=== PATIENT | male | born 1950 | race Caucasian/White ===

== ENCOUNTER 2019-07-10 23:04 | Inpatient (IN) | payer MEDICARE ==
--- NOTE | 2019-07-10 23:30 | ED ---
General Adult HPI - General Chief complaint: Recheck/Abnormal Lab/Rx Stated complaint: Low Hgb Time Seen by Provider: 07/10/19 23:08 Source: patient, EMS, old records reviewed Mode of arrival: EMS Limitations: no limitations - History of Present Illness Initial comments: This patient is a 68-year-old man with history of non-Hodgkin's lymphoma, currently undergoing chemotherapy who presents as a transfer from [facility], where he had gone to be seen earlier in the day. The patient was complaining that he was feeling fatigued and had no exercise tolerance. The patient had history of recent anemia and feels that he may be anemic again. The patient had labs at the outside facility, where he is found to be pancytopenic. White count 1.2, hemoglobin 6.7, platelet count 11. They did start transfusion with 1 unit PRBCs and transferred patient here. The patient states she was diagnosed four and a half years ago, and had been receiving treatment through the [facility], Dr. Garduno. Patient believes that his last chemotherapy was on June 28. -: days(s) - Related Data Home Medications Medication Instructions Recorded Confirmed Diphenoxylate HCl/Atropine 1 - 2 tab PO QID PRN 07/11/19 07/11/19 [Lomotil 2.5-0.025 mg Tablet] LORazepam [Ativan] 0.5 mg PO DAILY PRN 07/11/19 07/11/19 Prochlorperazine [Compazine] 10 mg PO Q6H PRN 07/11/19 07/11/19 Allergies Allergy/AdvReac Type Severity Reaction Status Date / Time No Known Allergies Allergy Verified 07/11/19 07:52 Review of Systems ROS Statement: Those systems with pertinent positive or pertinent negative responses have been documented in the HPI. ROS Other: All systems not noted in ROS Statement are negative. Constitutional: Reports: weakness. Denies: fever, chills Respiratory: Denies: cough, dyspnea, hemoptysis Cardiovascular: Reports: dyspnea on exertion, edema. Denies: chest pain, palpitations, syncope Gastrointestinal: Denies: abdominal pain, vomiting, diarrhea Genitourinary: Denies: dysuria, hematuria Musculoskeletal: Reports: back pain (Chronic) Skin: Denies: rash Neurological: Denies: headache, weakness, numbness, paresthesias Past Medical History Additional Past Medical History / Comment(s): non hodgkins lymphoma History of Any Multi-Drug Resistant Organisms: None Reported Past Surgical History: Hernia Repair Additional Past Surgical History / Comment(s): 1986 hernia repair Past Psychological History: No Psychological Hx Reported Smoking Status: Never smoker Past Alcohol Use History: None Reported Past Drug Use History: None Reported General Exam Limitations: no limitations General appearance: alert, in no apparent distress, cachectic Head exam: Present: atraumatic, normocephalic Eye exam: Present: normal appearance, other (Conjunctival pallor). Absent: scleral icterus, conjunctival injection ENT exam: Present: mucous membranes dry, other (Coastal pallor) Neck exam: Present: normal inspection Respiratory exam: Present: decreased breath sounds (At the right base). Absent: respiratory distress, wheezes, rales, rhonchi, stridor Cardiovascular Exam: Present: regular rate, normal rhythm, systolic murmur. Absent: diastolic murmur, rubs, gallop GI/Abdominal exam: Present: soft. Absent: distended, tenderness, guarding, rebound, rigid, mass Extremities exam: Present: normal inspection, pedal edema. Absent: calf tenderness Neurological exam: Present: alert Course Vital Signs 07/10/19 07/10/19 07/10/19 23:06 23:21 23:36 Temperature 97.8 F 97.6 F 97.6 F Pulse Rate 86 85 84 Respiratory 18 18 18 Rate Blood Pressure 127/79 114/66 116/67 O2 Sat by Pulse 96 95 97 Oximetry 07/11/19 07/11/19 00:17 02:22 Temperature 97.8 F Pulse Rate 82 80 Respiratory 18 18 Rate Blood Pressure 116/68 120/68 O2 Sat by Pulse 97 97 Oximetry - Reevaluation(s) Reevaluation #1: 07/11/19 01:[address] Flores, covering for the oncology service. Will see the patient morning. Treatment recommendations are incorporated. Medical Decision Making - Lab Data Result diagrams: 07/16/19 08:48 07/16/19 08:48 Disposition Clinical Impression: Pancytopenia Disposition: ADMITTED IP TO THIS [facility] Condition: Poor Is patient prescribed a controlled substance at d/c from ED?: No
--- NOTE | 2019-07-11 00:47 | XR ---
EXAMINATION TYPE: XR chest 1V portable DATE OF EXAM: 07/11/2019 COMPARISON: NONE HISTORY: Weakness TECHNIQUE: Single frontal view of the chest is obtained. FINDINGS: Heart is normal. There is blunting right costophrenic angle. There is some probably some i nfiltrate right lower lobe. Left lung is clear. There is no heart failure. There is right central leif ous catheter with tip in the superior vena cava. There are chest leads. IMPRESSION: Right pleural effusion and right lower lobe infiltrate. No heart failure seen.
[2019-07-11] MEDS ORDERED: PNEUMONIA PROTOCOL UTILIZED 1 EACH MISC PO PRN (01:17)
[2019-07-11] MEDS ORDERED: CEFEPIME 2 GM in SODIUM CHLORIDE 0.9% 100 ML IVPB ONE (01:30)
[2019-07-11] MEDS: SODIUM CHLORIDE 0.9% 1,000 ML IV SCH ×2 (01:49→17:52)
[2019-07-11] MEDS: CEFEPIME 2 GM in SODIUM CHLORIDE 0.9% 100 ML IVPB SCH ×2 (02:18→17:44)
[2019-07-11] MEDS: HYDROmorphone 1 MG/ML 1 ML SYRINGE IVP PRN (08:29)
[2019-07-11 09:02] LABS: Albumin 2.1 g/dL (3.5-5.0); Calcium 7.1 mg/dL (8.4-10.2); Potassium 3.6 mmol/L (3.5-5.1); Total Protein 4.4 g/dL (6.3-8.2)
[2019-07-11 09:04] LABS: Anisocytosis Slight; HCT 24.5 % (39.0-53.0); HGB 8.3 gm/dL (13.0-17.5); Hypochromasia Slight; MCH 30.1 pg (25.0-35.0); MCHC 33.8 g/dL (31.0-37.0); MCV 89.1 fL (80.0-100.0); Mean Platelet Volume 11.2; Poikilocytosis Moderate; RBC 2.75 m/uL (4.30-5.90); RDW 16.1 % (11.5-15.5)
[2019-07-11 09:27] LABS: Platelet Count 13 k/uL (150-450); WBC 0.9 k/uL (3.8-10.6)
[2019-07-11 11:27] VITALS: BMI 22.9
--- NOTE | 2019-07-11 12:44 | P.HPIM ---
History of Present Illness Patient is a pleasant 68-year-old male with known history of non-Hodgkin's lymphoma receiving chemotherapy in the of this month comes in here because of severe fatigue exercise intolerance found to be anemic patient is pancytope sae. Patient the was coughing significantly low sputum production did doesn't have any fever chest x-ray did show new pleural effusion and infiltrate because of which patient is being admitted for pneumonia and pancytopenia patient did receive 1 unit of PRBC transfusion at outside facility. Hemoglobin was 6.7 at that facility. Her present hemoglobin is 8.3 platelet count of 13 and white blood cell count of 0.9, I do not have absolute neutrophil count at this time. Patient's alkaline phosphatase is bit elevated to 4H2 as well. Review of Systems REVIEW OF SYSTEMS: CONSTITUTIONAL: No fever, no malaise, no fatigue. HEENT: No recent visual problems or hearing problems. Denied any sore throat. CARDIOVASCULAR: No chest pain, orthopnea, PND, no palpitations, no syncope. PULMONARY: no hemoptysis. GASTROINTESTINAL: No diarrhea, no nausea, no vomiting, no abdominal pain. NEUROLOGICAL: No headaches, no weakness, no numbness. HEMATOLOGICAL: Denies any bleeding or petechiae. GENITOURINARY: Denies any burning micturition, frequency, or urgency. MUSCULOSKELETAL/RHEUMATOLOGICAL: Denies any joint pain, swelling, or any muscle pain. ENDOCRINE: Denies any polyuria or polydipsia. The rest of the 14-point review of systems is negative. Past Medical History Additional Past Medical History / Comment(s): non hodgkins lymphoma History of Any Multi-Drug Resistant Organisms: None Reported Past Surgical History: Hernia Repair Additional Past Surgical History / Comment(s): 1986 hernia repair Past Psychological History: No Psychological Hx Reported Smoking Status: Never smoker Past Alcohol Use History: None Reported Past Drug Use History: None Reported Medications and Allergies Home Medications Medication Instructions Recorded Confirmed Type Diphenoxylate HCl/Atropine 1 - 2 tab PO QID PRN 07/11/19 07/11/19 History [Lomotil 2.5-0.025 mg Tablet] LORazepam [Ativan] 0.5 mg PO DAILY PRN 07/11/19 07/11/19 History Prochlorperazine [Compazine] 10 mg PO Q6H PRN 07/11/19 07/11/19 History Allergies Allergy/AdvReac Type Severity Reaction Status Date / Time No Known Allergies Allergy Verified 07/11/19 07:52 Physical Exam Vitals: Vital Signs Temp Pulse Pulse Resp BP BP Pulse Ox 07/11/19 08:00 89 18 07/11/19 07:24 97.7 F 89 18 108/70 97 07/11/19 02:48 97.5 F L 87 18 128/69 95 07/11/19 02:22 80 18 120/68 97 07/11/19 00:17 97.8 F 82 18 116/68 97 07/10/19 23:36 97.6 F 84 18 116/67 97 07/10/19 23:21 97.6 F 85 18 114/66 95 07/10/19 23:06 97.8 F 86 18 127/79 96 Intake and Output 07/10/19 07/11/19 07/11/19 22:59 06:59 14:59 Intake Total 500 Balance 500 Intake: Intake, IV Titration 500 Amount Cefepime 2 gm In Sodium 100 Chloride 0.9% 100 ml @ 200 mls/hr IVPB Q8H [facility] Rx#:[id number] Sodium Chloride 0.9% 1, 400 000 ml @ 100 mls/hr IV . Q10H [facility] Rx#:[id number] Other: Voiding Method Toilet Urinal # Voids 1 Weight 65.317 kg 68.492 kg PHYSICAL EXAMINATION: GENERAL: The patient is alert and oriented x3, not in any acute distress. Well developed, well nourished. Patient appears fatigued and weak HEENT: Pupils are round and equally reacting to light. EOMI. No scleral icterus. Does have conjunctival pallor. Normocephalic, atraumatic. No pharyngeal erythema. No thyromegaly. CARDIOVASCULAR: S1 and S2 present. No murmurs, rubs, or gallops. PULMONARY: Chest is clear to auscultation, no wheezing or crackles. ABDOMEN: Soft, nontender, nondistended, normoactive bowel sounds. No palpable organomegaly. MUSCULOSKELETAL: No joint swelling or deformity. EXTREMITIES: No cyanosis, clubbing, or pedal edema. NEUROLOGICAL: Gross neurological examination did not reveal any focal deficits. SKIN: No rashes. Results CBC & Chem 7: 07/11/19 08:06 07/11/19 08:06 Labs: Abnormal Lab Results - Last 24 Hours (Table) 07/11/19 07/11/19 Range/Units 08:06 08:06 WBC 0.9 L* (3.8-10.6) k/uL RBC 2.75 L (4.30-5.90) m/uL Hgb 8.3 L (13.0-17.5) gm/dL Hct 24.5 L (39.0-53.0) % RDW 16.1 H (11.5-15.5) % Plt Count 13 L* (150-450) k/uL BUN 25 H (9-20) mg/dL Calcium 7.1 L (8.4-10.2) mg/dL AST 16 L (17-59) U/L ALT 18 L (21-72) U/L Alkaline Phosphatase 482 H (38-126) U/L Total Protein 4.4 L (6.3-8.2) g/dL Albumin 2.1 L (3.5-5.0) g/dL Thrombosis Risk Factor Assmnt - Choose All That Apply Any of the Below Risk Factors Present?: No Other Risk Factors: Yes Each Risk Factor Represents 2 Points: Age 61-74 years, Malignancy Other congenital or acquired thrombophilia - If yes, enter type in comment: No Thrombosis Risk Factor Assessment Total Risk Factor Score: 4 Thrombosis Risk Factor Assessment Level: Moderate Risk Assessment and Plan Plan: -Right lower lobe pneumonia patient is neutropenic patient was started on CCefepime, obtain sputum cultures and blood cultures. IV fluids will be continu ed -Pancytopenia secondary to chemotherapy patient will receive GM-CSF injection For non-Hodgkin's lymphoma with recent chemotherapy as mentioned above -Fatigue. Secondary to anemia received monitor blood transfusion patient is feeling much better now -Mild elevation of alkaline phosphatase probably secondary to chemotherapy and cholestasis we'll repeat liver enzymes tomorrow -GI prophylaxis with Pepcid cannot use heparin for DVT prophylaxis or any other anticoagulants because of thrombocytopenia
[2019-07-11] MEDS ORDERED: traMADol 50 MG TAB PO SCH (13:00)
[2019-07-11] MEDS: FILGRASTIM-SNDZ 480 MCG/0.8 ML SYRINGE SQ SCH (13:33)
[2019-07-11] MEDS: traMADol 50 MG TAB PO PRN (20:19)
--- NOTE | 2019-07-11 22:24 | P.CONS ---
History of Present Illness - Reason for Consult Consult date: 07/11/19 diffuse large B-cell lymphoma - Chief Complaint neutropenic sepsis - History of Present Illness This is a very pleasant 68-year-old gentleman with a long-standing history of non-Hodgkin lymphoma, marginal zone lymphoma initially diagnosed in 2011 ongoing treatment multiple times in the past including being on the clinical trial under care of Dr. Georgi Shaffer at [facility]. The patient has had R CHOP, rituximab maintenance in the past subsequently had relapse recurrence with multiple other lines of treatment. More recently the patient had progression of disease and underwent a bone marrow biopsy in May 2019 which showed transformation of lymphoma to diffuse large B-cell lymphoma CD30 positive BX positive and CD20 negative. The patient has been started on immunotherapy likely I will I believe the BRENtuximab -based regimen however I do not have the records currently available. The patient has been referred from [facility] with significant anemia hemoglobin 6.7, platelet count of 11 currently undergoing one unit of PRBC. Patient is also neutropenic. overall feeling weak and fatigued and not doing that well,, short of breath, edema rest of the review of systems is negative. Review of Systems fatigue, shortness of breath, fever or shortness of breath chills Past Medical History Additional Past Medical History / Comment(s): non hodgkins lymphoma History of Any Multi-Drug Resistant Organisms: None Reported Past Surgical History: Hernia Repair Additional Past Surgical History / Comment(s): 1986 hernia repair Past Psychological History: No Psychological Hx Reported Smoking Status: Never smoker Past Alcohol Use History: None Reported Past Drug Use History: None Reported Medications and Allergies Home Medications Medication Instructions Recorded Confirmed Type Diphenoxylate HCl/Atropine 1 - 2 tab PO QID PRN 07/11/19 07/11/19 History [Lomotil 2.5-0.025 mg Tablet] LORazepam [Ativan] 0.5 mg PO DAILY PRN 07/11/19 07/11/19 History Prochlorperazine [Compazine] 10 mg PO Q6H PRN 07/11/19 07/11/19 History Allergies Allergy/AdvReac Type Severity Reaction Status Date / Time No Known Allergies Allergy Verified 07/11/19 07:52 Physical Exam Vitals: Vital Signs Temp Pulse Pulse Resp BP BP Pulse Ox 07/11/19 16:48 98 F 101 H 16 117/63 94 L 07/11/19 14:56 98.9 F 105 H 18 115/67 96 07/11/19 14:26 98.1 F 97 16 119/68 99 07/11/19 14:16 98.6 F 100 18 124/70 97 07/11/19 14:10 97.8 F 102 H 18 123/71 96 07/11/19 11:20 98.7 F 78 17 126/69 96 07/11/19 08:00 89 18 07/11/19 07:24 97.7 F 89 18 108/70 97 07/11/19 02:48 97.5 F L 87 18 128/69 95 07/11/19 02:22 80 18 120/68 97 07/11/19 00:17 97.8 F 82 18 116/68 97 07/10/19 23:36 97.6 F 84 18 116/67 97 07/10/19 23:21 97.6 F 85 18 114/66 95 07/10/19 23:06 97.8 F 86 18 127/79 96 Intake and Output 07/11/19 07/11/19 07/11/19 06:59 14:59 22:59 Intake Total 500 400 309 Balance 500 400 309 Intake: Intake, IV Titration 500 Amount Cefepime 2 gm In Sodium 100 Chloride 0.9% 100 ml @ 200 mls/hr IVPB Q8H [facility] Rx#:[id number] Sodium Chloride 0.9% 1, 400 000 ml @ 100 mls/hr IV . Q10H [facility] Rx#:[id number] Oral 400 Blood Product 0 309 Platelet Irr Pheresis 0 309 Acda1 Unit [id number] Other: Voiding Method Toilet Toilet Urinal Urinal # Voids 1 2 Weight 65.317 kg 68.492 kg The patient appeared well nourished and normally developed. Vital signs as documented. Head exam is unremarkable. No scleral icterus or corneal arcus noted. Neck is without jugular venous distension, thyromegaly, or carotid bruits. Carotid upstrokes are brisk bilaterally. Lungs are clear to auscultation and percussion. Cardiac exam reveals the PMI to be normally sized and situated. Rhythm is regular. First and second heart sounds normal. No murmurs, rubs or gallops. Abdominal exam reveals normal bowel sounds, no masses, no organomegaly and no aortic enlargement. Extremities are nonedematous and both femoral and pedal pulses are normal. Results CBC & Chem 7: 07/11/19 08:06 07/11/19 08:06 Labs: Abnormal Lab Results - Last 24 Hours (Table) 07/11/19 07/11/19 Range/Units 08:06 08:06 WBC 0.9 L* (3.8-10.6) k/uL RBC 2.75 L (4.30-5.90) m/uL Hgb 8.3 L (13.0-17.5) gm/dL Hct 24.5 L (39.0-53.0) % RDW 16.1 H (11.5-15.5) % Plt Count 13 L* (150-450) k/uL BUN 25 H (9-20) mg/dL Calcium 7.1 L (8.4-10.2) mg/dL AST 16 L (17-59) U/L ALT 18 L (21-72) U/L Alkaline Phosphatase 482 H (38-126) U/L Total Protein 4.4 L (6.3-8.2) g/dL Albumin 2.1 L (3.5-5.0) g/dL Chest x-ray: pending Abdominal x-ray: pending CT scan - abdomen: pending Assessment and Plan Assessment: Impression and plan: 1. 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 initial diagnoses of and marginal zone lymphoma in 2011. - Multiple lines of chemotherapy including R CHOP, rituximab maintenance etc. in the past, including a clinical trial under care of Dr. Georgi Shaffer at [facility]. - now with a relapsed, refractory disease the patient, an transformation to diffuse large B cell the patient has been started on immune therapy most likely with Brentuximab based chemotherapy however I do not have records at this time. - plan to continue treatment as outpatient. 2. Pneumonia,neutropenic sepsis: - continued on cefepime. - Start G-CSF - and monitor for signs and symptoms of infection/sepsis. 3. Chemotherapy-induced neutropenia, cytopenia:normocytic anemia: - Transfusions to keep hemoglobin above 7 and platelets above 10. - Current platelets 13,000, hemoglobin 8.3. - Check d-dimer, fibrinogen, haptoglobin, LDH, peripheral smear. - check B12 folate and iron levels. 4. Elevated liver enzymes. 5. Chronic kidney disease Thank you for allowing me to participate in the care of your patient. Radha Flores MD Sub[employer]ine Element Coordinator, [facility] Hematology Oncology [id number], [address] [place] [address] Office: [phone] Time with Patient: Greater than 30
[2019-07-11 22:59] LABS: Anisocytosis Slight; HCT 20.1 % (39.0-53.0); Hypochromasia Slight; MCH 29.8 pg (25.0-35.0); MCHC 33.9 g/dL (31.0-37.0); Mean Platelet Volume 8.5; Poikilocytosis Moderate; RBC 2.29 m/uL (4.30-5.90); RDW 16.5 % (11.5-15.5); Reticulocyte % 2.1 % (0.5-2.0)
[2019-07-11 23:01] LABS: WBC 1.2 k/uL (3.8-10.6)
[2019-07-11 23:03] LABS: HGB 6.8 gm/dL (13.0-17.5)
[2019-07-11 23:05] LABS: Platelet Count 16 k/uL (150-450)
[2019-07-11 23:16] LABS: D-Dimer 2.2 mg/L FEU (<0.60); INR 1.2 (<1.2); Partial Thromboplastin Time 34.9 sec (22.0-30.0); Prothrombin Time 12.5 sec (9.0-12.0)
[2019-07-11 23:34] LABS: Band Neutrophils % 23 %; Lymphocytes # (M) 0.05 k/uL (1.0-4.8); Monocytes # (M) 0.07 k/uL (0-1.0); Myelocytes # (M) 0.01 k/uL (0); Myelocytes % 1 %; Neutrophils % (M) 66 %; Nucleated Red Blood Cells 0 /100 WBC (0-0); Total Cells Counted 100
[2019-07-11 23:35] LABS: Anisocytosis (M) Present; Ovalocytes Present
[2019-07-12 00:53] LABS: Calcium 7.1 mg/dL (8.4-10.2); Potassium 3.5 mmol/L (3.5-5.1); Total Protein 4.1 g/dL (6.3-8.2)
[2019-07-12] MEDS: CEFEPIME 2 GM in SODIUM CHLORIDE 0.9% 100 ML IVPB SCH ×3 (01:59→18:19)
[2019-07-12] MEDS: SODIUM CHLORIDE 0.9% 1,000 ML IV SCH ×4 (01:59→18:20)
[2019-07-12 07:29] LABS: Anisocytosis Slight; HCT 21.7 % (39.0-53.0); Hypochromasia Slight; MCH 29.3 pg (25.0-35.0); MCHC 32.3 g/dL (31.0-37.0); MCV 90.7 fL (80.0-100.0); Mean Platelet Volume 8.1; Poikilocytosis Moderate; RDW 16.3 % (11.5-15.5)
[2019-07-12 07:42] LABS: WBC 1.2 k/uL (3.8-10.6)
[2019-07-12 07:43] LABS: Platelet Count 15 k/uL (150-450)
[2019-07-12 07:49] LABS: Albumin 1.9 g/dL (3.5-5.0); Calcium 6.8 mg/dL (8.4-10.2); Potassium 3.3 mmol/L (3.5-5.1); Total Protein 4.1 g/dL (6.3-8.2)
[2019-07-12] MEDS: traMADol 50 MG TAB PO PRN ×2 (08:32→19:08)
[2019-07-12] MEDS: FAMOTIDINE 20 MG TAB PO SCH (08:32)
[2019-07-12] MEDS: FILGRASTIM-SNDZ 480 MCG/0.8 ML SYRINGE SQ SCH (08:32)
[2019-07-12] MEDS ORDERED: POTASSIUM CHLORIDE ER 20 MEQ TAB.ER PO STA (13:55)
--- NOTE | 2019-07-12 14:27 | P.PN ---
Subjective Progress Note Date: 07/12/19 Principal diagnosis: Pancytopenia Mr. Sellers is a 68-year-old male with a past medical history of non-Hodgkin's lymphoma, marginal zone lymphoma initially diagnosed in 2012 ongoing treatment multiple times in the past admitted for severe fatigue. Patient was transferred from [facility] for pancytopenia. On 07/12/2019 - patient is lying in bed appears to be in no acute distress. His family is at bedside. Patient states that he has been feeling weak and fatigued for the past few weeks.He complains of mild difficulty in breathing and swelling of his bilateral lower extremities. He denies having any chest pain or palpitations. Mild cough. No abdominal pain nausea vomiting or diarrhea. No dysuria or hematuria. Patient received 1 unit of PRBCs and 5 units of platelets this morning. Patient denies having any bleeding from anywhere. Patient's labs and medications have been reviewed. Active Medications Famotidine (Pepcid) 20 mg PO DAILY [facility] Last Admin: 07/12/19 08:32 Dose: 20 mg Documented by: Filgrastim (Zarxio) 480 mcg SQ DAILY [facility] Last Admin: 07/12/19 08:32 Dose: 480 mcg Documented by: Hydromorphone HCl (Dilaudid) 1 mg IVP Q4HR PRN PRN Reason: Pain Last Admin: 07/11/19 08:29 Dose: 1 mg Documented by: Sodium Chloride (Saline 0.9%) 1,000 mls @ 100 mls/hr IV .Q10H [facility] Last Admin: 07/12/19 10:55 Dose: 100 mls/hr Documented by: Cefepime HCl 2 gm/ Sodium (Chloride) 100 mls @ 200 mls/hr IVPB Q8H [facility] Last Admin: 07/12/19 10:51 Dose: 200 mls/hr Documented by: Miscellaneous Information (Pneumonia Protocol Utilized) 1 each PO ONCE PRN PRN Reason: Per Protocol Tramadol HCl (Ultram) 50 mg PO QID PRN PRN Reason: Mild to Moderate Pain Last Admin: 07/12/19 08:32 Dose: 50 mg Documented by: Objective - Vital Signs Vital signs: Vital Signs Temp 97.3 F L 07/12/19 11:50 Pulse 93 07/12/19 11:50 Resp 16 07/12/19 11:50 BP 116/68 07/12/19 11:50 Pulse Ox 96 07/12/19 11:50 Intake & Output 07/11/19 07/12/19 07/12/19 18:59 06:59 18:59 Intake Total 709 310 Output Total 400 Balance 709 -90 Weight 68.492 kg Intake: Oral 400 Blood Product 309 310 Platelet Irr Pheresis 309 Acda1 Unit [id number] Rc Irr As1 Unit 310 [id number] Output: Urine 400 Other: Voiding Method Toilet Toilet Urinal Urinal # Voids 2 3 - Exam PHYSICAL EXAMINATION: GENERAL: Chronically ill appearing. No acute distress HEENT: Pupils round and equal and reactive to light. Mild pallor. CARDIOVASCULAR: S1 and S2 present. No murmurs, rubs, or gallops. PULMONARY: Chest is clear to auscultation, no wheezing or crackles. ABDOMEN: Soft, nontender, nondistended, normoactive bowel sounds. No palpable organomegaly. MUSCULOSKELETAL: No joint swelling or deformity. EXTREMITIES : bilateral pitting edema up to the knee NEUROLOGICAL: Gross neurological examination did not reveal any focal deficits. SKIN: frail - Labs CBC & Chem 7: 07/12/19 06:52 07/12/19 06:52 Labs: Abnormal Lab Results - Last 24 Hours (Table) 07/11/19 07/11/19 07/11/19 Range/Units 08:30 22:39 22:39 WBC 1.2 L* (3.8-10.6) k/uL RBC 2.29 L (4.30-5.90) m/uL Hgb 6.8 L* D (13.0-17.5) gm/dL Hct 20.1 L (39.0-53.0) % RDW 16.5 H (11.5-15.5) % Plt Count 16 L* (150-450) k/uL Neutrophils # (Manual) 1.00 L (1.3-7.7) k/uL Lymphocytes # (Manual) 0.05 L (1.0-4.8) k/uL Myelocytes # (Manual) 0.01 H (0) k/uL Retic Count 2.1 H (0.5-2.0) % Haptoglobin (31.2-198.0) mg/dL PT 12.5 H (9.0-12.0) sec INR 1.2 H (<1.2) APTT 34.9 H (22.0-30.0) sec D-Dimer 2.20 H (<0.60) mg/L FEU Potassium (3.5-5.1) mmol/L Chloride (98-107) mmol/L BUN (9-20) mg/dL Glucose (74-99) mg/dL Plasma Lactic Acid William (0.7-2.0) mmol/L Calcium (8.4-10.2) mg/dL AST (17-59) U/L ALT (21-72) U/L Alkaline Phosphatase (38-126) U/L Total Protein (6.3-8.2) g/dL Albumin (3.5-5.0) g/dL Crossmatch See Detail 07/11/19 07/11/19 07/11/19 Range/Units 22:39 22:39 22:39 WBC (3.8-10.6) k/uL RBC (4.30-5.90) m/uL Hgb (13.0-17.5) gm/dL Hct (39.0-53.0) % RDW (11.5-15.5) % Plt Count (150-450) k/uL Neutrophils # (Manual) (1.3-7.7) k/uL Lymphocytes # (Manual) (1.0-4.8) k/uL Myelocytes # (Manual) (0) k/uL Retic Count (0.5-2.0) % Haptoglobin 337.0 H (31.2-198.0) mg/dL PT (9.0-12.0) sec INR (<1.2) APTT (22.0-30.0) sec D-Dimer (<0.60) mg/L FEU Potassium (3.5-5.1) mmol/L Chloride 108 H (98-107) mmol/L BUN 23 H (9-20) mg/dL Glucose (74-99) mg/dL Plasma Lactic Acid William <0.5 L (0.7-2.0) mmol/L Calcium 7.1 L (8.4-10.2) mg/dL AST (17-59) U/L ALT 17 L (21-72) U/L Alkaline Phosphatase 454 H (38-126) U/L Total Protein 4.1 L (6.3-8.2) g/dL Albumin 2.0 L (3.5-5.0) g/dL Crossmatch 07/12/19 07/12/19 Range/Units 06:52 06:52 WBC 1.2 L* (3.8-10.6) k/uL RBC 2.40 L (4.30-5.90) m/uL Hgb 7.0 L (13.0-17.5) gm/dL Hct 21.7 L (39.0-53.0) % RDW 16.3 H (11.5-15.5) % Plt Count 15 L* (150-450) k/uL Neutrophils # (Manual) (1.3-7.7) k/uL Lymphocytes # (Manual) (1.0-4.8) k/uL Myelocytes # (Manual) (0) k/uL Retic Count (0.5-2.0) % Haptoglobin (31.2-198.0) mg/dL PT (9.0-12.0) sec INR (<1.2) APTT (22.0-30.0) sec D-Dimer (<0.60) mg/L FEU Potassium 3.3 L (3.5-5.1) mmol/L Chloride 109 H (98-107) mmol/L BUN 23 H (9-20) mg/dL Glucose 73 L (74-99) mg/dL Plasma Lactic Acid William (0.7-2.0) mmol/L Calcium 6.8 L (8.4-10.2) mg/dL AST 14 L (17-59) U/L ALT 18 L (21-72) U/L Alkaline Phosphatase 384 H (38-126) U/L Total Protein 4.1 L (6.3-8.2) g/dL Albumin 1.9 L (3.5-5.0) g/dL Crossmatch Microbiology - Last 24 Hours (Table) 07/11/19 16:30 Gram Stain - Preliminary Sputum Sputum Culture - Preliminary 07/11/19 01:55 Blood Culture - Preliminary Blood No Growth after 24 hours Assessment and Plan Assessment: ASSESSMENT Right lower lobe pneumonia Pancytopenia - due to chemotherapy Hypokalemia Non-Hodgkin's lymphoma Refractory marginal zone lymphoma Elevated LFTs Elevated alkaline phosphatase Chronic kidney disease Severe protein calorie malnutrition PLAN: Patient received 1 unit of PRBCs and 5 units of platelets and his hemoglobin is around 7 and platelet count around 15. No signs of active bleeding. Continue with Zosyn. Will follow sputum and blood cultures. Patient has been afebrile for the past to 24 hours.Replace percussion. As the patient's albumin is low, encouraged him to drink ensure at least 3 times a day. Further recommendations to follow depending on the progress of the patient. The treatment plan was discussed in detail with the patient's family members at bedside.
--- NOTE | 2019-07-12 18:22 | P.PN ---
Subjective Progress Note Date: 07/12/19 Objective - Vital Signs Vital signs: Vital Signs Temp 97.3 F L 07/12/19 11:50 Pulse 93 07/12/19 11:50 Resp 16 07/12/19 11:50 BP 116/68 07/12/19 11:50 Pulse Ox 96 07/12/19 11:50 Intake & Output 07/11/19 07/12/19 07/12/19 18:59 06:59 18:59 Intake Total 709 620 Output Total 400 Balance 709 220 Weight 68.492 kg Intake: Oral 400 Blood Product 309 620 Platelet Irr Pheresis 309 Acda1 Unit [id number] Rc Irr As1 Unit 310 [id number] Output: Urine 400 Other: Voiding Method Toilet Toilet Toilet Urinal Urinal Urinal # Voids 2 3 - Exam The patient appeared well nourished and normally developed. Vital signs as documented. Head exam is unremarkable. No scleral icterus or corneal arcus noted. Neck is without jugular venous distension, thyromegaly, or carotid bruits. Carotid upstrokes are brisk bilaterally. Lungs are clear to auscultation and percussion. Cardiac exam reveals the PMI to be normally sized and situated. Rhythm is regular. First and second heart sounds normal. No murmurs, rubs or gallops. Abdominal exam reveals normal bowel sounds, no masses, no organomegaly and no aortic enlargement. Extremities are nonedematous and both femoral and pedal pulses are normal. - Labs CBC & Chem 7: 07/12/19 06:52 07/12/19 06:52 Labs: Abnormal Lab Results - Last 24 Hours (Table) 07/11/19 07/11/19 07/11/19 Range/Units 08:30 22:39 22:39 WBC 1.2 L* (3.8-10.6) k/uL RBC 2.29 L (4.30-5.90) m/uL Hgb 6.8 L* D (13.0-17.5) gm/dL Hct 20.1 L (39.0-53.0) % RDW 16.5 H (11.5-15.5) % Plt Count 16 L* (150-450) k/uL Neutrophils # (Manual) 1.00 L (1.3-7.7) k/uL Lymphocytes # (Manual) 0.05 L (1.0-4.8) k/uL Myelocytes # (Manual) 0.01 H (0) k/uL Retic Count 2.1 H (0.5-2.0) % Haptoglobin (31.2-198.0) mg/dL PT 12.5 H (9.0-12.0) sec INR 1.2 H (<1.2) APTT 34.9 H (22.0-30.0) sec D-Dimer 2.20 H (<0.60) mg/L FEU Potassium (3.5-5.1) mmol/L Chloride (98-107) mmol/L BUN (9-20) mg/dL Glucose (74-99) mg/dL Plasma Lactic Acid William (0.7-2.0) mmol/L Calcium (8.4-10.2) mg/dL AST (17-59) U/L ALT (21-72) U/L Alkaline Phosphatase (38-126) U/L Total Protein (6.3-8.2) g/dL Albumin (3.5-5.0) g/dL Crossmatch See Detail 07/11/19 07/11/19 07/11/19 Range/Units 22:39 22:39 22:39 WBC (3.8-10.6) k/uL RBC (4.30-5.90) m/uL Hgb (13.0-17.5) gm/dL Hct (39.0-53.0) % RDW (11.5-15.5) % Plt Count (150-450) k/uL Neutrophils # (Manual) (1.3-7.7) k/uL Lymphocytes # (Manual) (1.0-4.8) k/uL Myelocytes # (Manual) (0) k/uL Retic Count (0.5-2.0) % Haptoglobin 337.0 H (31.2-198.0) mg/dL PT (9.0-12.0) sec INR (<1.2) APTT (22.0-30.0) sec D-Dimer (<0.60) mg/L FEU Potassium (3.5-5.1) mmol/L Chloride 108 H (98-107) mmol/L BUN 23 H (9-20) mg/dL Glucose (74-99) mg/dL Plasma Lactic Acid William <0.5 L (0.7-2.0) mmol/L Calcium 7.1 L (8.4-10.2) mg/dL AST (17-59) U/L ALT 17 L (21-72) U/L Alkaline Phosphatase 454 H (38-126) U/L Total Protein 4.1 L (6.3-8.2) g/dL Albumin 2.0 L (3.5-5.0) g/dL Crossmatch 07/12/19 07/12/19 Range/Units 06:52 06:52 WBC 1.2 L* (3.8-10.6) k/uL RBC 2.40 L (4.30-5.90) m/uL Hgb 7.0 L (13.0-17.5) gm/dL Hct 21.7 L (39.0-53.0) % RDW 16.3 H (11.5-15.5) % Plt Count 15 L* (150-450) k/uL Neutrophils # (Manual) (1.3-7.7) k/uL Lymphocytes # (Manual) (1.0-4.8) k/uL Myelocytes # (Manual) (0) k/uL Retic Count (0.5-2.0) % Haptoglobin (31.2-198.0) mg/dL PT (9.0-12.0) sec INR (<1.2) APTT (22.0-30.0) sec D-Dimer (<0.60) mg/L FEU Potassium 3.3 L (3.5-5.1) mmol/L Chloride 109 H (98-107) mmol/L BUN 23 H (9-20) mg/dL Glucose 73 L (74-99) mg/dL Plasma Lactic Acid William (0.7-2.0) mmol/L Calcium 6.8 L (8.4-10.2) mg/dL AST 14 L (17-59) U/L ALT 18 L (21-72) U/L Alkaline Phosphatase 384 H (38-126) U/L Total Protein 4.1 L (6.3-8.2) g/dL Albumin 1.9 L (3.5-5.0) g/dL Crossmatch Microbiology - Last 24 Hours (Table) 07/11/19 16:30 Gram Stain - Preliminary Sputum Sputum Culture - Preliminary 07/11/19 01:55 Blood Culture - Preliminary Blood No Growth after 24 hours - Imaging and Cardiology Chest x-ray: report reviewed Assessment and Plan Assessment: Impression and plan: 1. 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 initial diagnoses of and marginal zone lymphoma in 2011. - Multiple lines of chemotherapy including R CHOP, rituximab maintenance etc. in the past, including a clinical trial under care of Dr. Georgi Shaffer at [facility]. - now with a relapsed, refractory disease the patient, an transformation to diffuse large B cell the patient has been started on Polatuzumab vedotin with bendamustine and rituximab. - plan to continue treatment as outpatient. 2. Pneumonia,neutropenic sepsis: - continued on cefepime. - continue G-CSF - and monitor for signs and symptoms of infection/sepsis. 3. Chemotherapy-induced neutropenia, cytopenia:normocytic anemia: - Transfusions to keep hemoglobin above 7 and platelets above 10. - Current platelets 13,000, hemoglobin 8.3. - Check d-dimer, fibrinogen, haptoglobin, LDH, peripheral smear. - check B12 folate and iron levels. - Current white count is 0.9 with platelets of 13,000, hemoglobin 8.3 after transfusion. Reticulocyte count is 2.1, haptoglobin is high fibrinogen 442 d- dimer is high no evidence of DIC, Elevated liver enzymes 4. Elevated liver enzymes. 5. Chronic kidney disease Thank you for allowing me to participate in the care of your patient. Radha Flores MD Guitar Maker, [facility] [place] Hematology Oncology [id number], [address] [place] [address] Office: [phone]
[2019-07-13] MEDS: CEFEPIME 2 GM in SODIUM CHLORIDE 0.9% 100 ML IVPB SCH ×3 (02:25→21:04)
[2019-07-13] MEDS: SODIUM CHLORIDE 0.9% 1,000 ML IV SCH ×3 (05:00→17:34)
[2019-07-13 07:57] LABS: Anisocytosis Slight; HCT 22.9 % (39.0-53.0); HGB 7.6 gm/dL (13.0-17.5); Hypochromasia Slight; MCH 30.2 pg (25.0-35.0); MCHC 33.4 g/dL (31.0-37.0); MCV 90.4 fL (80.0-100.0); Mean Platelet Volume 8.8; Poikilocytosis Moderate; RBC 2.53 m/uL (4.30-5.90); RDW 16.3 % (11.5-15.5); WBC 1.6 k/uL (3.8-10.6)
[2019-07-13 08:00] LABS: Calcium 6.7 mg/dL (8.4-10.2); Potassium 3.6 mmol/L (3.5-5.1)
[2019-07-13 08:09] LABS: Platelet Count 12 k/uL (150-450)
[2019-07-13] MEDS: FAMOTIDINE 20 MG TAB PO SCH (08:42)
[2019-07-13] MEDS: FILGRASTIM-SNDZ 480 MCG/0.8 ML SYRINGE SQ SCH (08:42)
[2019-07-13 10:31] LABS: Band Neutrophils % 7 %; Lymphocytes # (M) 0.05 k/uL (1.0-4.8); Metamyelocytes # (M) 0.03 k/uL (0); Metamyelocytes % 2 %; Monocytes # (M) 0.13 k/uL (0-1.0); Neutrophils % (M) 81 %; Nucleated Red Blood Cells 0 /100 WBC (0-0); Total Cells Counted 200
--- NOTE | 2019-07-13 13:02 | P.PN ---
Subjective Progress Note Date: 07/13/19 Principal diagnosis: Pancytopenia Mr. Sellers is a 68-year-old male with a past medical history of non-Hodgkin's lymphoma, marginal zone lymphoma initially diagnosed in 2011 ongoing treatment multiple times in the past admitted for severe fatigue. Patient was transferred from [facility] for pancytopenia. On 07/12/2019 - patient is lying in bed appears to be in no acute distress. His family is at bedside. Patient states that he has been feeling weak and fatigued for the past few weeks.He complains of mild difficulty in breathing and swelling of his bilateral lower extremities. He denies having any chest pain or palpitations. Mild cough. No abdominal pain nausea vomiting or diarrhea. No dysuria or hematuria. Patient received 1 unit of PRBCs and 5 units of platelets this morning. Patient denies having any bleeding from anywhere. On 07/13/2019 - patient is lying in bed appears to be in acute distress. Patient complains of generalized fatigue and weakness. He also complains of loss of appetite. Mild difficulty in breathing and denies having any chest pain or palpitations. No abdominal pain nausea vomiting or diarrhea. Patient had a bowel movement this morning and it was normal. No dysuria or hematuria. Patient's labs and medications have been reviewed. Active Medications Famotidine (Pepcid) 20 mg PO DAILY [facility] Last Admin: 07/13/19 08:42 Dose: 20 mg Documented by: Filgrastim (Zarxio) 480 mcg SQ DAILY [facility] Last Admin: 07/13/19 08:42 Dose: 480 mcg Documented by: Hydromorphone HCl (Dilaudid) 1 mg IVP Q4HR PRN PRN Reason: Pain Last Admin: 07/11/19 08:29 Dose: 1 mg Documented by: Sodium Chloride (Saline 0.9%) 1,000 mls @ 100 mls/hr IV .Q10H [facility] Last Admin: 07/13/19 05:00 Dose: 100 mls/hr Documented by: Cefepime HCl 2 gm/ Sodium (Chloride) 100 mls @ 200 mls/hr IVPB Q8H [facility] Last Admin: 07/13/19 08:42 Dose: 200 mls/hr Documented by: Miscellaneous Information (Pneumonia Protocol Utilized) 1 each PO ONCE PRN PRN Reason: Per Protocol Tramadol HCl (Ultram) 50 mg PO QID PRN PRN Reason: Mild to Moderate Pain Last Admin: 07/12/19 19:08 Dose: 50 mg Documented by: Objective - Vital Signs Vital signs: Vital Signs Temp 98.2 F 07/13/19 11:29 Pulse 95 07/13/19 11:29 Resp 16 07/13/19 11:29 BP 124/73 07/13/19 11:29 Pulse Ox 96 07/13/19 11:29 Intake & Output 07/12/19 07/13/19 07/13/19 18:59 06:59 18:59 Intake Total 620 Output Total 400 Balance 220 Intake: Blood Product 620 Rc Irr As1 Unit 310 [id number] Output: Urine 400 Other: Voiding Method Toilet Toilet Toilet Urinal Urinal Urinal # Voids 2 - Exam PHYSICAL EXAMINATION: GENERAL: Chronically ill appearing. No acute distress HEENT: Pupils round and equal and reactive to light. Mild pallor. CARDIOVASCULAR: S1 and S2 present. No murmurs, rubs, or gallops. PULMONARY: Chest is clear to auscultation, no wheezing or crackles. ABDOMEN: Soft, nontender, nondistended, normoactive bowel sounds. MUSCULOSKELETAL: No joint swelling or deformity. EXTREMITIES : bilateral pitting edema up to the knee NEUROLOGICAL: Gross neurological examination did not reveal any focal deficits. - Labs CBC & Chem 7: 07/13/19 06:48 07/13/19 06:48 Labs: Abnormal Lab Results - Last 24 Hours (Table) 07/13/19 07/13/19 Range/Units 06:48 06:48 WBC 1.6 L (3.8-10.6) k/uL RBC 2.53 L (4.30-5.90) m/uL Hgb 7.6 L (13.0-17.5) gm/dL Hct 22.9 L (39.0-53.0) % RDW 16.3 H (11.5-15.5) % Plt Count 12 L* (150-450) k/uL Lymphocytes # (Manual) 0.05 L (1.0-4.8) k/uL Metamyelocytes # (Man) 0.03 H (0) k/uL Chloride 111 H (98-107) mmol/L BUN 25 H (9-20) mg/dL Calcium 6.7 L (8.4-10.2) mg/dL Microbiology - Last 24 Hours (Table) 07/11/19 01:55 Blood Culture - Preliminary Blood No Growth after 48 hours 07/11/19 22:39 Blood Culture - Preliminary Blood No Growth after 24 hours Assessment and Plan Assessment: ASSESSMENT Right lower lobe pneumonia Pancytopenia - due to chemotherapy Hypokalemia - resolved Non-Hodgkin's lymphoma Refractory marginal zone lymphoma Elevated LFTs Elevated alkaline phosphatase Chronic kidney disease Severe protein calorie malnutrition PLAN: Patient's white count is slowly trending up. It is 1.6 today. Hemoglobin stable at 7.6. So far he received 1 unit of PRBCs and 5 units of platelets and his hemoglobin is around 7 and platelet count around 15. No signs of active bleeding. Continue with cefepime. Will follow sputum and blood cultures - no growth so far. As the patient's albumin is low, encouraged him to drink ensure at least 3 times a day. Further recommendations to follow depending on the progress of the patient. The treatment plan was discussed in detail with the patient's family members at bedside.
--- NOTE | 2019-07-13 19:42 | P.PN ---
Subjective Progress Note Date: 07/13/19 Objective - Vital Signs Vital signs: Vital Signs Temp 97.9 F 07/13/19 18:09 Pulse 92 07/13/19 18:09 Resp 14 07/13/19 18:09 BP 123/69 07/13/19 18:09 Pulse Ox 98 07/13/19 18:09 Intake & Output 07/13/19 07/13/19 07/14/19 06:59 18:59 06:59 Intake Total 850 Balance 850 Intake: Intake, IV Titration 850 Amount Cefepime 2 gm In Sodium 100 Chloride 0.9% 100 ml @ 200 mls/hr IVPB Q8H [facility] Rx#:[id number] Sodium Chloride 0.9% 1, 750 000 ml @ 100 mls/hr IV . Q10H [facility] Rx#:[id number] Blood Product 0 Platelet Irr Pheresis 2 0 Acda Unit [id number] Other: Voiding Method Toilet Toilet Urinal Urinal # Voids 2 3 - Exam The patient appeared well nourished and normally developed. Vital signs as documented. Head exam is unremarkable. No scleral icterus or corneal arcus noted. Neck is without jugular venous distension, thyromegaly, or carotid bruits. Carotid upstrokes are brisk bilaterally. Lungs are clear to auscultation and percussion. Cardiac exam reveals the PMI to be normally sized and situated. Rhythm is regular. First and second heart sounds normal. No murmurs, rubs or gallops. Abdominal exam reveals normal bowel sounds, no masses, no organomegaly and no aortic enlargement. Extremities are nonedematous and both femoral and pedal pulses are normal. - Labs CBC & Chem 7: 07/13/19 06:48 07/13/19 06:48 Labs: Abnormal Lab Results - Last 24 Hours (Table) 07/13/19 07/13/19 Range/Units 06:48 06:48 WBC 1.6 L (3.8-10.6) k/uL RBC 2.53 L (4.30-5.90) m/uL Hgb 7.6 L (13.0-17.5) gm/dL Hct 22.9 L (39.0-53.0) % RDW 16.3 H (11.5-15.5) % Plt Count 12 L* (150-450) k/uL Lymphocytes # (Manual) 0.05 L (1.0-4.8) k/uL Metamyelocytes # (Man) 0.03 H (0) k/uL Chloride 111 H (98-107) mmol/L BUN 25 H (9-20) mg/dL Calcium 6.7 L (8.4-10.2) mg/dL Microbiology - Last 24 Hours (Table) 07/11/19 01:55 Blood Culture - Preliminary Blood No Growth after 48 hours 07/11/19 22:39 Blood Culture - Preliminary Blood No Growth after 24 hours Assessment and Plan Assessment: Impression and plan: 1. 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 initial diagnoses of and marginal zone lymphoma in 2011. - Multiple lines of chemotherapy including R CHOP, rituximab maintenance etc. in the past, including a clinical trial under care of Dr. Georgi Shaffer at [facility]. - now with a relapsed, refractory disease the patient, an transformation to diffuse large B cell the patient has been started on Polatuzumab vedotin with bendamustine and rituximab. - plan to continue treatment as outpatient. 2. Pneumonia,neutropenic sepsis: - continued on cefepime. - continue G-CSF - and monitor for signs and symptoms of infection/sepsis. 3. Chemotherapy-induced neutropenia, cytopenia:normocytic anemia: - Transfusions to keep hemoglobin above 7 and platelets above 10. - Current platelets 13,000, hemoglobin 8.3. - Check d-dimer, fibrinogen, haptoglobin, LDH, peripheral smear. - check B12 folate and iron levels. - Current white count is 0.9 with platelets of 13,000, hemoglobin 8.3 after transfusion. Reticulocyte count is 2.1, haptoglobin is high fibrinogen 442 d- dimer is high no evidence of DIC, - continues to be transfusion dependent, received platelets today. Elevated liver enzymes 4. Elevated liver enzymes. 5. Chronic kidney disease Thank you for allowing me to participate in the care of your patient. Radha Flores MD Composition [employer], [facility] Hematology Oncology [id number], [address] [place] [address] Office: [phone] Time with Patient: Greater than 30
[2019-07-14] MEDS: CEFEPIME 2 GM in SODIUM CHLORIDE 0.9% 100 ML IVPB SCH ×3 (02:31→17:22)
[2019-07-14 07:31] LABS: Anisocytosis Slight; Basophils % (A) 0 %; Eosinophils % (A) 0 %; HCT 23.1 % (39.0-53.0); HGB 7.5 gm/dL (13.0-17.5); Hypochromasia Slight; Lymphocytes # (A) 0.1 k/uL (1.0-4.8); Lymphocytes % (A) 4 %; MCH 30.1 pg (25.0-35.0); MCHC 32.5 g/dL (31.0-37.0); MCV 92.7 fL (80.0-100.0); Monocytes % (A) 2 %; Neutrophils # (A) 1.8 k/uL (1.3-7.7); Neutrophils % (A) 93 %; Poikilocytosis Moderate; RDW 16.3 % (11.5-15.5)
[2019-07-14 07:40] LABS: Platelet Count 11 k/uL (150-450)
[2019-07-14 08:43] LABS: Spherocytes Present; Toxic Granulation Present
[2019-07-14] MEDS: FAMOTIDINE 20 MG TAB PO SCH (09:55)
[2019-07-14] MEDS: FILGRASTIM-SNDZ 480 MCG/0.8 ML SYRINGE SQ SCH (09:56)
[2019-07-14] MEDS: traMADol 50 MG TAB PO PRN (10:01)
[2019-07-14] MEDS: SODIUM CHLORIDE 0.9% 1,000 ML IV SCH (13:16)
[2019-07-14] MEDS: MEGESTROL 40 MG TAB PO SCH (13:16)
[2019-07-14] MEDS: NYSTATIN 100,000 UNIT/ML SUSP 500,000 UNIT/5 ML CUP PO SCH ×2 (13:17→17:22)
[2019-07-14] MEDS: DIPHENOX-ATROP 2.5-0.025 MG 1 EACH TAB PO PRN (16:21)
--- NOTE | 2019-07-14 18:28 | P.PN ---
Subjective Progress Note Date: 07/14/19 Objective - Vital Signs Vital signs: Vital Signs Temp 97.6 F 07/14/19 18:09 Pulse 91 07/14/19 18:09 Resp 16 07/14/19 18:09 BP 123/68 07/14/19 18:09 Pulse Ox 97 07/14/19 18:09 Intake & Output 07/13/19 07/14/19 07/14/19 18:59 06:59 18:59 Intake Total 850 2201 1300 Balance 850 2201 1300 Weight 68.492 kg Intake: Intake, IV Titration 850 1200 900 Amount Cefepime 2 gm In Sodium 100 300 100 Chloride 0.9% 100 ml @ 200 mls/hr IVPB Q8H [facility] Rx#:[id number] Sodium Chloride 0.9% 1, 750 900 800 000 ml @ 100 mls/hr IV . Q10H [facility] Rx#:[id number] Oral 800 400 Blood Product 0 201 0 Platelet Irr Pheresis 2 0 201 Acda Unit [id number] Platelet Irr Pheresis 0 Acda1 Unit [id number] Other: Voiding Method Toilet Toilet Toilet Urinal Urinal Urinal # Voids 3 3 # Bowel Movements 2 - Constitutional General appearance: Present: average body habitus, cooperative, no acute distress - EENT EENT Comment(s): dry oral mucus membranes, tongue is coated with thick, green colored film Eyes: Present: anicteric sclerae, EOMI ENT: Present: hearing grossly normal - Respiratory Respiratory: bilateral: wheezing - Cardiovascular Heart sounds: normal: S1, S2 - Peripheral edema leg Peripheral Edema: bilateral: None - Gastrointestinal General gastrointestinal: Present: normal bowel sounds, soft. Absent: absent bowel sounds, decreased bowel sounds, distended, hepatomegaly, hyperactive bowel sounds, organomegaly, rigid, scaphoid, splenomegaly, tenderness, umbilical hernia, ventral hernia - Neurologic Neurologic: Present: CNII-XII intact - Musculoskeletal Musculoskeletal: Present: generalized weakness - Psychiatric Psychiatric: Present: A&O x's 3, appropriate affect, intact judgment & insight - Labs CBC & Chem 7: 07/14/19 06:54 07/13/19 06:48 Labs: Abnormal Lab Results - Last 24 Hours (Table) 07/11/19 07/14/19 Range/Units 22:39 06:54 WBC 2.0 L (3.8-10.6) k/uL RBC 2.50 L (4.30-5.90) m/uL Hgb 7.5 L (13.0-17.5) gm/dL Hct 23.1 L (39.0-53.0) % RDW 16.3 H (11.5-15.5) % Plt Count 11 L* (150-450) k/uL Lymphocytes # 0.1 L (1.0-4.8) k/uL Pathologist Review See comment A Microbiology - Last 24 Hours (Table) 07/11/19 16:30 Gram Stain - Final Sputum Sputum Culture - Final 07/11/19 01:55 Blood Culture - Preliminary Blood No Growth after 72 hours 07/11/19 22:39 Blood Culture - Preliminary Blood No Growth after 48 hours Assessment and Plan (1) Diffuse large B cell lymphoma Narrative/Plan: 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 Multiple lines of Tx, including a clinical trial at [facility]. Continue treatment as outpatient per Primary Oncologist. Current Visit: Yes Status: Acute Code(s): C83.30 - DIFFUSE LARGE B-CELL LYMPHOMA, UNSPECIFIED SITE SNOMED Code(s): 130943977 (2) Antineoplastic chemotherapy induced pancytopenia Narrative/Plan: Conservative transfusions to keep hemoglobin 7, Hgb 7.5 today, no transfusion. Platelets 11,000 today with bleeding, 1 unit SDP ordered GCSF ordered. Pt on empiric abx, pancultures negative Current Visit: Yes Status: Acute Code(s): D61.810 - ANTINEOPLASTIC CHEMOTHERAPY INDUCED PANCYTOPENIA; T45.1X5A - ADVERSE EFFECT OF ANTINEOPLASTIC AND IMMUNOSUP DRUGS, INIT SNOMED Code(s): 110030984567780 (3) Oral thrush Narrative/Plan: Nystatin suspension Salt and soda Current Visit: Yes Status: Acute Priority: High Code(s): B37.0 - CANDIDAL STOMATITIS SNOMED Code(s): 26627052
--- NOTE | 2019-07-14 19:05 | P.PN ---
Subjective Progress Note Date: 07/14/19 Principal diagnosis: Pancytopenia Mr. Sellers is a 68-year-old male with a past medical history of non-Hodgkin's lymphoma, marginal zone lymphoma initially diagnosed in 2011 ongoing treatment multiple times in the past admitted for severe fatigue. Patient was transferred from [facility] for pancytopenia. On 07/12/2019 - patient is lying in bed appears to be in no acute distress. His family is at bedside. Patient states that he has been feeling weak and fatigued for the past few weeks.He complains of mild difficulty in breathing and swelling of his bilateral lower extremities. He denies having any chest pain or palpitations. Mild cough. No abdominal pain nausea vomiting or diarrhea. No dysuria or hematuria. Patient received 1 unit of PRBCs and 5 units of platelets this morning. Patient denies having any bleeding from anywhere. On 07/13/2019 - patient is lying in bed appears to be in acute distress. Patient complains of generalized fatigue and weakness. He also complains of loss of appetite. Mild difficulty in breathing and denies having any chest pain or palpitations. No abdominal pain nausea vomiting or diarrhea. Patient had a bowel movement this morning and it was normal. No dysuria or hematuria. On 07/14/19 - Patient is lying in bed appears to be in no acute distress. Family members at the bedside, mentioned about loss of appetite. Patient states that he does not feel like eating much. He denies having any nausea or vomiting. Mild difficulty in breathing. No chest pain or palpitations. Denies having any dysuria or hematuria. Patient's labs have been reviewed and his hemoglobin is stable at 7.2 and platelets at 11,000 and white count 82. Patient has been afebrile for the past 24 hours. Patient's labs and medications have been reviewed. Active Medications Diphenoxylate HCl/Atropine (Lomotil) 1 each PO Q6HR PRN PRN Reason: Diarrhea Last Admin: 07/14/19 16:21 Dose: 1 each Documented by: Famotidine (Pepcid) 20 mg PO DAILY [facility] Last Admin: 07/14/19 09:55 Dose: 20 mg Documented by: Filgrastim (Zarxio) 480 mcg SQ DAILY [facility] Last Admin: 07/14/19 09:56 Dose: 480 mcg Documented by: Hydromorphone HCl (Dilaudid) 1 mg IVP Q4HR PRN PRN Reason: Pain Last Admin: 07/11/19 08:29 Dose: 1 mg Documented by: Sodium Chloride (Saline 0.9%) 1,000 mls @ 100 mls/hr IV .Q10H [facility] Last Admin: 07/14/19 13:16 Dose: 100 mls/hr Documented by: Cefepime HCl 2 gm/ Sodium (Chloride) 100 mls @ 200 mls/hr IVPB Q8H [facility] Last Admin: 07/14/19 17:22 Dose: 200 mls/hr Documented by: Megestrol Acetate (Megace) 40 mg PO DAILY [facility] Last Admin: 07/14/19 13:16 Dose: 40 mg Documented by: Miscellaneous Information (Pneumonia Protocol Utilized) 1 each PO ONCE PRN PRN Reason: Per Protocol Nystatin (Mycostatin Oral Susp) 500,000 unit PO QID [facility] Last Admin: 07/14/19 17:22 Dose: 500,000 unit Documented by: Sodium Bicarbonate () 5 ml PO 5XD [facility] Tramadol HCl (Ultram) 50 mg PO QID PRN PRN Reason: Mild to Moderate Pain Last Admin: 07/14/19 10:01 Dose: 50 mg Documented by: Objective - Vital Signs Vital signs: Vital Signs Temp 98.1 F 07/14/19 12:11 Pulse 90 07/14/19 12:11 Resp 17 07/14/19 12:11 BP 125/74 07/14/19 12:11 Pulse Ox 97 07/14/19 12:11 Intake & Output 07/13/19 07/14/19 07/14/19 18:59 06:59 18:59 Intake Total 850 2201 Balance 850 2201 Weight 68.492 kg Intake: Intake, IV Titration 850 1200 Amount Cefepime 2 gm In Sodium 100 300 Chloride 0.9% 100 ml @ 200 mls/hr IVPB Q8H [facility] Rx#:[id number] Sodium Chloride 0.9% 1, 750 900 000 ml @ 100 mls/hr IV . Q10H [facility] Rx#:[id number] Oral 800 Blood Product 0 201 Platelet Irr Pheresis 2 0 201 Acda Unit [id number] Other: Voiding Method Toilet Toilet Toilet Urinal Urinal Urinal # Voids 3 3 - Exam PHYSICAL EXAMINATION: GENERAL: Chronically ill appearing. No acute distress HEENT: Pupils round and equal and reactive to light. Mild pallor. CARDIOVASCULAR: S1 and S2 present. No murmurs, rubs, or gallops. PULMONARY: Chest is clear to auscultation, no wheezing or crackles. ABDOMEN: Soft, nontender, nondistended, normoactive bowel sounds. MUSCULOSKELETAL: No joint swelling or deformity. EXTREMITIES : bilateral pitting edema up to the knee Examination of the back - 4/5 cm sacral decubitus ulcer on the right hip area. NEUROLOGICAL: Gross neurological examination did not reveal any focal deficits. - Labs CBC & Chem 7: 07/14/19 06:54 07/13/19 06:48 Labs: Abnormal Lab Results - Last 24 Hours (Table) 07/14/19 Range/Units 06:54 WBC 2.0 L (3.8-10.6) k/uL RBC 2.50 L (4.30-5.90) m/uL Hgb 7.5 L (13.0-17.5) gm/dL Hct 23.1 L (39.0-53.0) % RDW 16.3 H (11.5-15.5) % Plt Count 11 L* (150-450) k/uL Lymphocytes # 0.1 L (1.0-4.8) k/uL Microbiology - Last 24 Hours (Table) 07/11/19 16:30 Gram Stain - Final Sputum Sputum Culture - Final 07/11/19 01:55 Blood Culture - Preliminary Blood No Growth after 72 hours 07/11/19 22:39 Blood Culture - Preliminary Blood No Growth after 48 hours Assessment and Plan Assessment: ASSESSMENT Right lower lobe pneumonia Pancytopenia - due to chemotherapy Hypokalemia - resolved Non-Hodgkin's lymphoma Refractory marginal zone lymphoma Elevated LFTs Elevated alkaline phosphatase Chronic kidney disease Severe protein calorie malnutrition Stage 2 sacral decubitus ulcer PLAN: Patient has been afebrile for the past 24 hours and blood cultures, sputum cultures negative so far. Patient continues to be on empiric antibiotic in the form of cefepime. Oncology on board and following the patient closely. Patient has been started on Megace for poor appetite. Encouraged him to increase protein intake in the form of Ensure. Overall prognosis is poor. Further recommendations to follow depending on progress of the patient. The treatment plan was discussed in detail with the patient's family members at bedside.
[2019-07-15] MEDS: CEFEPIME 2 GM in SODIUM CHLORIDE 0.9% 100 ML IVPB SCH ×3 (02:29→17:48)
[2019-07-15] MEDS: SALT AND SODA MOUTHWASH 1,000 ML PO SCH ×6 (03:24→21:49)
[2019-07-15] MEDS: SODIUM CHLORIDE 0.9% 1,000 ML IV SCH ×2 (03:24→05:14)
[2019-07-15] MEDS: NYSTATIN 100,000 UNIT/ML SUSP 500,000 UNIT/5 ML CUP PO SCH ×5 (03:24→21:49)
[2019-07-15] MEDS: FILGRASTIM-SNDZ 480 MCG/0.8 ML SYRINGE SQ SCH (08:33)
[2019-07-15] MEDS: FAMOTIDINE 20 MG TAB PO SCH (08:35)
[2019-07-15] MEDS: MEGESTROL 40 MG TAB PO SCH (08:35)
[2019-07-15 08:56] LABS: Anisocytosis Slight; Basophils % (A) 1 %; Eosinophils % (A) 0 %; HCT 21.3 % (39.0-53.0); Hypochromasia Slight; Lymphocytes # (A) 0.1 k/uL (1.0-4.8); Lymphocytes % (A) 4 %; MCH 30.4 pg (25.0-35.0); MCHC 32.9 g/dL (31.0-37.0); MCV 92.2 fL (80.0-100.0); Mean Platelet Volume 10.7; Monocytes % (A) 3 %; Neutrophils # (A) 1.4 k/uL (1.3-7.7); Neutrophils % (A) 91 %; Poikilocytosis Moderate; RBC 2.31 m/uL (4.30-5.90); RDW 16.3 % (11.5-15.5); WBC 1.5 k/uL (3.8-10.6)
[2019-07-15 08:57] LABS: Calcium 6.7 mg/dL (8.4-10.2); Potassium 3.2 mmol/L (3.5-5.1)
[2019-07-15 09:13] LABS: Platelet Count 10 k/uL (150-450)
--- NOTE | 2019-07-15 10:36 | P.PN ---
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 Family is at bedside with numerous questions Objective - Vital Signs Vital signs: Vital Signs Temp 98.4 F 07/15/19 07:16 Pulse 73 07/15/19 07:16 Resp 16 07/15/19 07:16 BP 125/67 07/15/19 07:16 Pulse Ox 96 07/15/19 07:16 Intake & Output 07/14/19 07/15/19 07/15/19 18:59 06:59 18:59 Intake Total 1300 2503 Balance 1300 2503 Weight 68.492 kg Intake: Intake, IV Titration 900 1300 Amount Cefepime 2 gm In Sodium 100 300 Chloride 0.9% 100 ml @ 200 mls/hr IVPB Q8H [facility] Rx#:[id number] Sodium Chloride 0.9% 1, 800 1000 000 ml @ 100 mls/hr IV . Q10H [facility] Rx#:[id number] Oral 400 1000 Blood Product 0 203 Platelet Irr Pheresis 0 203 Acda1 Unit [id number] Other: Voiding Method Toilet Toilet Urinal Urinal # Voids 2 # Bowel Movements 2 1 - Constitutional General appearance: Present: average body habitus, cooperative, no acute distress - EENT EENT Comment(s): very dry mouth, coated tongue-slightly less then yesterday Eyes: Present: anicteric sclerae, EOMI - Respiratory Respiratory: bilateral: diminished (weak inspiatory effort) - Cardiovascular Heart sounds: normal: S1, S2 - Peripheral edema leg Peripheral Edema: bilateral: Trace - Gastrointestinal General gastrointestinal: Present: distended, hyperactive bowel sounds, soft - Integumentary Integumentary: Present: pale - Musculoskeletal Musculoskeletal: Present: generalized weakness - Psychiatric Psychiatric: Absent: A&O x's 3, appropriate affect, intact judgment & insight - Labs CBC & Chem 7: 07/15/19 07:48 07/15/19 07:48 Labs: Abnormal Lab Results - Last 24 Hours (Table) 07/11/19 07/15/19 07/15/19 Range/Units 22:39 07:48 07:48 WBC 1.5 L (3.8-10.6) k/uL RBC 2.31 L (4.30-5.90) m/uL Hgb 7.0 L (13.0-17.5) gm/dL Hct 21.3 L (39.0-53.0) % RDW 16.3 H (11.5-15.5) % Plt Count 10 L* (150-450) k/uL Pathologist Review See comment A Potassium 3.2 L (3.5-5.1) mmol/L Chloride 115 H (98-107) mmol/L BUN 33 H (9-20) mg/dL Calcium 6.7 L (8.4-10.2) mg/dL Microbiology - Last 24 Hours (Table) 07/11/19 01:55 Blood Culture - Preliminary Blood No Growth after 96 hours 07/11/19 22:39 Blood Culture - Preliminary Blood No Growth after 72 hours 07/11/19 16:30 Gram Stain - Final Sputum Sputum Culture - Final Assessment and Plan (1) Diffuse large B cell lymphoma Narrative/Plan: 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 Multiple lines of Tx, including a clinical trial at [facility]. Continue treatment as directed per Primary Oncologist. Current Visit: Yes Status: Acute Code(s): C83.30 - DIFFUSE LARGE B-CELL LYMPHOMA, UNSPECIFIED SITE SNOMED Code(s): 304665124 (2) Antineoplastic chemotherapy induced pancytopenia Narrative/Plan: Conservative transfusions to keep hemoglobin 7, Hgb 7 today, no transfusion. Platelets 10,000 today, no transfusion Cont GCSF. Cont empiric abx, pancultures negative Current Visit: Yes Status: Acute Code(s): D61.810 - ANTINEOPLASTIC CHEMO THERAPY INDUCED PANCYTOPENIA; T45.1X5A - ADVERSE EFFECT OF ANTINEOPLASTIC AND IMMUNOSUP DRUGS, INIT SNOMED Code(s): 030588491227489 (3) Oral thrush Narrative/Plan: Nystatin suspension Salt and soda Told family they need to encourage mouth care Current Visit: Yes Status: Acute Priority: High Code(s): B37.0 - CANDIDAL STOMATITIS SNOMED Code(s): 42106320 Plan: Patient's family had questions about his current condition, anticipated recovery and opinion regarding next steps. Explained to family that the patient is recovering slowly objectively but, he appears to be declining otherwise. It was explained that with patient's history of treatment and recurrent disease that recovering from any additional stress on the body-i.e. pneumonia-can certainly take longer and increase duration of time it will take to have pt return to baseline. As to next steps, patient was just recently diagnosed with transformation and has had only one cycle of treatment. Unfortunately, not knowing all of the details of the patient's disease prior to initiating treatment we cannot be clear exactly how well this 1 cycle of treatment is working. Patient's family stated adenopathy in the neck but, that is not palpable at this time. So, it would be reasonable to assume that the treatment has had some impact on the disease. Patient was requiring transfusions about twice a week, so, his counts at baseline would be anticipated to be low. His current counts really cannot be considered any worse than prior to starting treatment in this comparison. Family was questioned if patient had commented on how he felt about treatment, they have not had this discussion. Family was encouraged to discuss with patient's his wishes as he moves forward through recovery and treatment of disease. It was also explained to the family that they needed to encourage patient to get moving and to find ways to get adequate nutrition because without sustenance and mobility moving forward with treatment will not be an option. They verbalized understanding. Dr. Lua answered all of the family's questions to their satisfaction. CXR ordered to evaluate pleural effusions/infiltrates Abdominal x-ray ordered to evaluate distention. Patient may require an ultrasound, possibly a paracentesis? Physical therapy ordered to evaluate and treat patient. Doctor attests: I performed a history and physical examination of this patient, developed impression and plan of care. Discussed with dictator. I agree with dictators note, documented as a scribe. Time with Patient: Greater than 30
[2019-07-15] MEDS ORDERED: POTASSIUM CHLORIDE ER 20 MEQ TAB.ER PO STA (10:55)
[2019-07-15 11:35] LABS: Toxic Granulation Present; Toxic Vacuolation Present
--- NOTE | 2019-07-15 13:18 | P.PN ---
Subjective 68-year-old male with a past medical history of non-Hodgkin's lymphoma, marginal zone lymphoma initially diagnosed in 2012 ongoing treatment multiple times in the past admitted for severe fatigue. Patient was transferred from [facility] for pancytopenia. On 07/12/2019 - patient is lying in bed appears to be in no acute distress. His family is at bedside. Patient states that he has been feeling weak and fatigued for the past few weeks.He complains of mild difficulty in breathing and swelling of his bilateral lower extremities. He denies having any chest pain or palpitations. Mild cough. No abdominal pain nausea vomiting or diarrhea. No dysuria or hematuria. Patient received 1 unit of PRBCs and 5 units of platelets this morning. Patient denies having any bleeding from anywhere. On 07/13/2019 - patient is lying in bed appears to be in acute distress. Patient complains of generalized fatigue and weakness. He also complains of loss of appetite. Mild difficulty in breathing and denies having any chest pain or palpitations. No abdominal pain nausea vomiting or diarrhea. Patient had a bowel movement this morning and it was normal. No dysuria or hematuria. On 07/14/19 - Patient is lying in bed appears to be in no acute distress. Family members at the bedside, mentioned about loss of appetite. Patient states that he does not feel like eating much. He denies having any nausea or vomiting. Mild difficulty in breathing. No chest pain or palpitations. Denies having any dysuria or hematuria. Patient's labs have been reviewed and his hemoglobin is stable at 7.2 and platelets at 11,000 and white count 82. Patient has been afebrile for the past 24 hours. 07/15/2019 Patient is not neutropenic anymore patient is doing much better sputum cultures are finalizedwhich showed gram-positive cocci, gram-negative bacilli, basically polymicrobial. Constitutional: Denied any fatigue denied any fever. Cardio vascular: denied any chest pain, palpitations Gastrointestinal denied any nausea vomiting Pulmonary: Denied any shortness of breath cough Neurologic denied any new focal deficits All inpatient medications were reviewed and appropriate changes in these medications as dictated in the interval history and assessment and plan. Objective - Vital Signs Vital signs: Vital Signs Temp 98.4 F 07/15/19 07:16 Pulse 73 07/15/19 07:16 Resp 16 07/15/19 07:16 BP 125/67 07/15/19 07:16 Pulse Ox 96 07/15/19 07:16 Intake & Output 07/14/19 07/15/19 07/15/19 18:59 06:59 18:59 Intake Total 1300 2503 Balance 1300 2503 Weight 68.492 kg Intake: Intake, IV Titration 900 1300 Amount Cefepime 2 gm In Sodium 100 300 Chloride 0.9% 100 ml @ 200 mls/hr IVPB Q8H [facility] Rx#:[id number] Sodium Chloride 0.9% 1, 800 1000 000 ml @ 100 mls/hr IV . Q10H [facility] Rx#:[id number] Oral 400 1000 Blood Product 0 203 Platelet Irr Pheresis 0 203 Acda1 Unit [id number] Other: Voiding Method Toilet Toilet Urinal Urinal # Voids 2 # Bowel Movements 2 1 - Exam PHYSICAL EXAMINATION: GENERAL: The patient is alert and oriented x3, not in any acute distress. Well developed, well nourished. HEENT: Pupils are round and equally reacting to light. EOMI. No scleral icterus. No conjunctival pallor. Normocephalic, atraumatic. No pharyngeal erythema. No th yromegaly. CARDIOVASCULAR: S1 and S2 present. No murmurs, rubs, or gallops. PULMONARY: Chest is clear to auscultation, no wheezing or crackles. ABDOMEN: Soft, nontender, nondistended, normoactive bowel sounds. No palpable organomegaly. MUSCULOSKELETAL: No joint swelling or deformity. EXTREMITIES: No cyanosis, clubbing, or pedal edema. NEUROLOGICAL: Gross neurological examination did not reveal any focal deficits. SKIN: No rashes. - Labs CBC & Chem 7: 07/15/19 07:48 07/15/19 07:48 Labs: Abnormal Lab Results - Last 24 Hours (Table) 07/11/19 07/15/19 07/15/19 Range/Units 22:39 07:48 07:48 WBC 1.5 L (3.8-10.6) k/uL RBC 2.31 L (4.30-5.90) m/uL Hgb 7.0 L (13.0-17.5) gm/dL Hct 21.3 L (39.0-53.0) % RDW 16.3 H (11.5-15.5) % Plt Count 10 L* (150-450) k/uL Lymphocytes # 0.1 L (1.0-4.8) k/uL Pathologist Review See comment A Potassium 3.2 L (3.5-5.1) mmol/L Chloride 115 H (98-107) mmol/L BUN 33 H (9-20) mg/dL Calcium 6.7 L (8.4-10.2) mg/dL Microbiology - Last 24 Hours (Table) 07/11/19 01:55 Blood Culture - Preliminary Blood No Growth after 96 hours 07/11/19 22:39 Blood Culture - Preliminary Blood No Growth after 72 hours 07/11/19 16:30 Gram Stain - Final Sputum Sputum Culture - Final Assessment and Plan Plan: -Right lower lobe pneumonia patient is neutropenic patient was started on CCefepime,urine culture is polymicrobial cannot really say gram-negative pneumonia. Patient -Pancytopenia secondary to chemotherapy patient, did receive filgrastimthe patient's is severely thrombocytopenia quit that 10,000 platelet count today although patient doesn't have any active bleeding at this time For non-Hodgkin's lymphoma with recent chemotherapy as mentioned above -Fatigue. Secondary to anemia received monitor blood transfusion patient is feeling much better no -hypokalemia potassium was supplemented -GI prophylaxis with Pepcid cannot use heparin for DVT prophylaxis or any other anticoagulants because of thrombocytopenia
[2019-07-15] MEDS: traMADol 50 MG TAB PO PRN (14:35)
--- NOTE | 2019-07-15 15:32 | XR ---
EXAMINATION TYPE: XR chest 2V DATE OF EXAM: 07/15/2019 COMPARISON: 07/11/2019 HISTORY: 68-year-old male follow-up study, right pleural effusion and right lower lobe infiltrate TECHNIQUE: Frontal and lateral views FINDINGS: Right anterior chest wall injection port with catheter tip apparently within the right ventricle. Heart upper limits of normal in size. Continued moderate sized right-sided subpulmonic effusion with patchy mid and lower lung opacity. Tra ce left pleural effusion may be slightly increased. IMPRESSION: 1. Right-sided anterior chest wall injection port with catheter tip within the right ventricle. Repos ition as appropriate. 2. Continued moderate right-sided subpulmonic effusion with adjacent atelectasis and/or consolidation . A trace left pleural effusion is new.
--- NOTE | 2019-07-15 15:35 | XR ---
EXAMINATION TYPE: XR abdomen 2V DATE OF EXAM: 07/15/2019 CLINICAL DATA: 68-year-old male with abdominal distention, [facility] COMPARISON: None FINDINGS: Right-sided pleural effusion. Injection port catheter within the right ventricle redemonstrated. Upright view shows no evidence for free intraperitoneal air. No differential air-fluid levels are identified. A few small bowel loops and scattered colonic air is demonstrated. Small bowel loop in the left abdom en is mildly dilated at 3.3 cm. No suspicious calcifications seen. Generalized increased density centrally over the mid abdomen. IMPRESSION: 1. Redemonstrated right-sided injection port catheter tip within the right ventricle. Reposition as a ppropriate. 2. Known right pleural effusion. 3. Increased density centrally in the abdomen could be due to the degree of penetration. Underlying a bdominal ascites is also possible. Consider ultrasound to assess for ascites. 4. A dilated left mid abdominal small bowel loop at 3.3 cm is nonspecific. The bowel gas pattern is o verall nonobstructive at this time. Consider regional ileus or enteritis
[2019-07-15] MEDS: DIPHENOX-ATROP 2.5-0.025 MG 1 EACH TAB PO PRN (17:48)
[2019-07-16] MEDS ORDERED: HALOPERIDOL LACTATE 5 MG/ML 1 ML VIAL IM PRN (00:49)
[2019-07-16] MEDS: CEFEPIME 2 GM in SODIUM CHLORIDE 0.9% 100 ML IVPB SCH (01:16)
[2019-07-16] MEDS: SALT AND SODA MOUTHWASH 1,000 ML PO SCH ×6 (01:23→23:29)
[2019-07-16] MEDS: FILGRASTIM-SNDZ 480 MCG/0.8 ML SYRINGE SQ SCH (08:49)
[2019-07-16 09:07] LABS: Anisocytosis Slight; Basophils % (A) 0 %; Eosinophils % (A) 0 %; Hypochromasia Moderate; Lymphocytes # (A) 0.1 k/uL (1.0-4.8); Lymphocytes % (A) 5 %; MCH 29.6 pg (25.0-35.0); MCV 92.6 fL (80.0-100.0); Mean Platelet Volume 11.2; Monocytes % (A) 3 %; Neutrophils # (A) 1.4 k/uL (1.3-7.7); Neutrophils % (A) 90 %; Poikilocytosis Moderate; RBC 2.16 m/uL (4.30-5.90); RDW 16.4 % (11.5-15.5); WBC 1.5 k/uL (3.8-10.6)
[2019-07-16 09:17] LABS: Calcium 7.1 mg/dL (8.4-10.2); Potassium 3.1 mmol/L (3.5-5.1)
[2019-07-16 09:20] LABS: HGB 6.4 gm/dL (13.0-17.5); Platelet Count 9 k/uL (150-450)
[2019-07-16] MEDS: NYSTATIN 100,000 UNIT/ML SUSP 500,000 UNIT/5 ML CUP PO SCH ×4 (09:52→20:54)
[2019-07-16] MEDS: MEGESTROL 40 MG TAB PO SCH (09:52)
[2019-07-16 10:28] LABS: Toxic Granulation Present
[2019-07-16] MEDS: FAMOTIDINE 20 MG TAB PO SCH (10:54)
[2019-07-16] MEDS: DRONABINOL 2.5 MG CAP PO SCH ×2 (12:37→16:20)
--- NOTE | 2019-07-16 15:07 | P.PN ---
Subjective Progress Note Date: 07/16/19 Principal diagnosis: 68-year-old male with a past medical history of non-Hodgkin's lymphoma, marginal zone lymphoma initially diagnosed in 2012 ongoing treatment multiple times in the past admitted for severe fatigue. Patient was transferred from [facility] for pancytopenia. On 07/12/2019 - patient is lying in bed appears to be in no acute distress. His family is at bedside. Patient states that he has been feeling weak and fatigued for the past few weeks.He complains of mild difficulty in breathing and swelling of his bilateral lower extremities. He denies having any chest pain or palpitations. Mild cough. No abdominal pain nausea vomiting or diarrhea. No dysuria or hematuria. Patient received 1 unit of PRBCs and 5 units of platelets this morning. Patient denies having any bleeding from anywhere. On 07/13/2019 - patient is lying in bed appears to be in acute distress. Patient complains of generalized fatigue and weakness. He also complains of loss of appetite. Mild difficulty in breathing and denies having any chest pain or palpitations. No abdominal pain nausea vomiting or diarrhea. Patient had a bowel movement this morning and it was normal. No dysuria or hematuria. On 07/14/19 - Patient is lying in bed appears to be in no acute distress. Family members at the bedside, mentioned about loss of appetite. Patient states that he does not feel like eating much. He denies having any nausea or vomiting. Mild difficulty in breathing. No chest pain or palpitations. Denies having any dysuria or hematuria. Patient's labs have been reviewed and his hemoglobin is stable at 7.2 and platelets at 11,000 and white count 82. Patient has been afebrile for the past 24 hours. 07/15/2019 Patient is not neutropenic anymore patient is doing much better sputum cultures are finalized which showed gram-positive cocci, gram-negative bacilli, basically polymicrobial. Constitutional: Denied any fatigue denied any fever. Cardio vascular: denied any chest pain, palpitations Gastrointestinal denied any nausea vomiting Pulmonary: Denied any shortness of breath cough Neurologic denied any new focal deficits All inpatient medications were reviewed and appropriate changes in these medications as dictated in the interval history and assessment and plan. 07/16/2019 Patient is lying in bed and appears to be in no acute distress. Multiple Family members at the bedside. Patient will be receiving a unit of PRBCs along with a unit of platelets today for hemoglobin of 6.4 and platelets of 9. Oncology is following closely. CT of the brain was ordered today as the patient is now not talking, walking, or eating. Objective - Vital Signs Vital signs: Vital Signs Temp 97.6 F 07/16/19 14:11 Pulse 91 07/16/19 14:11 Resp 16 07/16/19 14:11 BP 121/72 07/16/19 14:11 Pulse Ox 99 07/16/19 14:11 Intake & Output 07/15/19 07/16/19 07/16/19 18:59 06:59 18:59 Intake Total 960 0 Output Total 200 613 Balance 760 -613 Intake: Oral 960 Blood Product 0 Platelet Irr Pheresis 0 Acda1 Unit [id number] Output: Urine 200 Post Void Residual 613 Other: Voiding Method Toilet Diaper Diaper Urinal Incontinent Incontinent # Voids 2 1 # Bowel Movements 1 - Exam GENERAL: The patient is alert and oriented x3, not in any acute distress. Well developed, well nourished. HEENT: Pupils are round and equally reacting to light. EOMI. No scleral icterus. No conjunctival pallor. Normocephalic, atraumatic. No pharyngeal erythema. No thyromegaly. CARDIOVASCULAR: S1 and S2 present. No murmurs, rubs, or gallops. PULMONARY: Chest is clear to auscultation, no wheezing or crackles. ABDOMEN: Soft, nontender, nondistended, normoactive bowel sounds. No palpable organomegaly. MUSCULOSKELETAL: No joint swelling or deformity. EXTREMITIES: No cyanosis, clubbing, or pedal edema. NEUROLOGICAL: Gross neurological examination did not reveal any focal deficits. SKIN: No rashes. - Labs CBC & Chem 7: 07/16/19 08:48 07/16/19 08:48 Labs: Abnormal Lab Results - Last 24 Hours (Table) 07/16/19 07/16/19 07/16/19 Range/Units 08:48 08:48 10:34 WBC 1.5 L (3.8-10.6) k/uL RBC 2.16 L (4.30-5.90) m/uL Hgb 6.4 L* (13.0-17.5) gm/dL Hct 20.0 L (39.0-53.0) % RDW 16.4 H (11.5-15.5) % Plt Count 9 L* (150-450) k/uL Lymphocytes # 0.1 L (1.0-4.8) k/uL Sodium 146 H (137-145) mmol/L Potassium 3.1 L (3.5-5.1) mmol/L Chloride 118 H (98-107) mmol/L Carbon Dioxide 20 L (22-30) mmol/L BUN 35 H (9-20) mg/dL Calcium 7.1 L (8.4-10.2) mg/dL Crossmatch See Detail Microbiology - Last 24 Hours (Table) 07/11/19 01:55 Blood Culture - Preliminary Blood No Growth after 120 hours 07/11/19 22:39 Blood Culture - Preliminary Blood No Growth after 96 hours Assessment and Plan Assessment: -Right lower lobe pneumonia. patient is neutropenic patient was started on Cefepime, urine culture is polymicrobial cannot really say gram-negative pneumonia. -Pancytopenia secondary to chemotherapy patient, did receive filgrastim. the patient's has severe thrombocytopenia quit that 10,000 platelet count today although patient doesn't have any active bleeding at this time. Patient's hemog lobin today is 6.4 and platelets are 9 and will be receiving transfusions today or oncology. - non-Hodgkin's lymphoma with recent chemotherapy as mentioned above -Fatigue. Secondary to anemia received monitor blood transfusion -hypokalemia potassium was supplemented -GI prophylaxis with Pepcid -DVT prophylaxis cannot use heparin for or any other anticoagulants because of thrombocytopenia Recommendations and discussion: Recommend to continue current medications, management, and symptomatic britt tment. Will continue to monitor closely. Patient's Hemoccult woman today is 6.4 and will be receiving a unit of blood along with platelets being 9 and is receiving up unit of platelets at this time. Patient's status is continuing to decline and discussed with the patient's family at length today about CODE STATUS and states that in the past he is stated that he does not want anything done if he was to have cardiac arrest, but is unsure of what decided this time. will be discussing this with family and they will make a decision. Patient is now not talking, has not been walking since yesterday, and is refusing to eat and has no appetite. Marinol was ordered. Oncology is following closely. CT of the brain was ordered and is pending at this time. Prognosis is poor.
[2019-07-16] MEDS: HYDROmorphone 1 MG/ML 1 ML SYRINGE IVP PRN ×3 (15:22→23:24)
[2019-07-16] MEDS ORDERED: LORazepam 2 MG/ML INJ IM STA (15:48)
[2019-07-16] MEDS ORDERED: LORazepam 2 MG/ML INJ IM PRN (16:04)
--- NOTE | 2019-07-16 18:40 | CT ---
EXAMINATION TYPE: CT brain wo/w con DATE OF EXAM: 07/16/2019 COMPARISON: None. HISTORY: NH-LYMPHOMA CT DLP: 2335 mGycm Automated exposure control for dose reduction was used. CONTRAST: CT scan of the head is performed without and with IV Contrast, patient injected with 100 mL of Isovue 300. FINDINGS: There is no acute intracranial hemorrhage or midline shift. There is diffuse ventricular and sulcal p rominence. There is low attenuation in the deep and periventricular white matter. Postcontrast images show no suspicious enhancement. There is completely opacified left maxillary sinus. Left and maxilla ry sinus shows chronic bony thickening. There is air-fluid level in the right maxillary sinus. IMPRESSION: Moderate diffuse cerebral atrophy and chronic small vessel ischemic changes. Bilateral ma xillary sinus disease.
[2019-07-16 20:02] LABS: Glucose,Whole Blood 78 mg/dL (75-99)
[2019-07-16 20:46] LABS: RBC,Urine >182 /hpf (0-5)
[2019-07-16 20:47] LABS: Color,Urine Dark Red
[2019-07-16 20:48] LABS: Appearance,Urine Bloody (Clear)
[2019-07-16] MEDS ORDERED: FUROSEMIDE 10 MG/ML 4 ML VIAL IV STA (22:19)
--- NOTE | 2019-07-17 00:44 | P.PN ---
Subjective Progress Note Date: 07/16/19 The patient has had significant deterioration. He is opening his eyes, but is essentially nonverbal and not following commands. He is not eating, and is totally bedbound. No fevers or chills. Liver concern about possible urinary retention but nursing station the patient has been voiding frequently and is incontinent. He does not appear to be in any acute distress or obvious pain. Objective - Vital Signs Vital signs: Vital Signs Temp 97.1 F L 07/16/19 23:09 Pulse 109 H 07/16/19 23:09 Resp 16 07/16/19 23:09 BP 147/84 07/16/19 23:09 Pulse Ox 94 L 07/16/19 23:09 Intake & Output 07/16/19 07/16/19 07/17/19 06:59 18:59 06:59 Intake Total 418 0 Output Total 613 90 Balance -195 -90 Intake: Blood Product 418 0 Platelet Irr Pheresis 209 Acda1 Unit [id number] Rc Irr As1 Unit 0 [id number] Output: Urine 90 Post Void Residual 613 Other: Voiding Method Diaper Diaper Incontinent Incontinent # Voids 1 - Constitutional General appearance: Present: no acute distress - EENT Eyes: Present: EOMI ENT: Present: normal oropharynx - Respiratory Respiratory: right: diminished - Cardiovascular Rhythm: regular Heart sounds: normal: S1, S2 - Gastrointestinal General gastrointestinal: Present: distended, normal bowel sounds, soft - Integumentary Integumentary: Present: normal - Neurologic Neurologic Comment(s): Very lethargic and drowsy. Occasionally opens eyes. Not following commands. Nonverbal - Musculoskeletal Musculoskeletal: Present: generalized weakness - Labs CBC & Chem 7: 07/16/19 08:48 07/16/19 08:48 Labs: Abnormal Lab Results - Last 24 Hours (Table) 07/16/19 07/16/19 07/16/19 Range/Units 08:48 08:48 10:34 WBC 1.5 L (3.8-10.6) k/uL RBC 2.16 L (4.30-5.90) m/uL Hgb 6.4 L* (13.0-17.5) gm/dL Hct 20.0 L (39.0-53.0) % RDW 16.4 H (11.5-15.5) % Plt Count 9 L* (150-450) k/uL Lymphocytes # 0.1 L (1.0-4.8) k/uL Sodium 146 H (137-145) mmol/L Potassium 3.1 L (3.5-5.1) mmol/L Chloride 118 H (98-107) mmol/L Carbon Dioxide 20 L (22-30) mmol/L BUN 35 H (9-20) mg/dL Calcium 7.1 L (8.4-10.2) mg/dL Urine RBC (0-5) /hpf Crossmatch See Detail 07/16/19 Range/Units 19:20 WBC (3.8-10.6) k/uL RBC (4.30-5.90) m/uL Hgb (13.0-17.5) gm/dL Hct (39.0-53.0) % RDW (11.5-15.5) % Plt Count (150-450) k/uL Lymphocytes # (1.0-4.8) k/uL Sodium (137-145) mmol/L Potassium (3.5-5.1) mmol/L Chloride (98-107) mmol/L Carbon Dioxide (22-30) mmol/L BUN (9-20) mg/dL Calcium (8.4-10.2) mg/dL Urine RBC >182 H (0-5) /hpf Crossmatch Microbiology - Last 24 Hours (Table) 07/11/19 01:55 Blood Culture - Preliminary Blood No Growth after 120 hours 07/11/19 22:39 Blood Culture - Preliminary Blood No Growth after 96 hours Assessment and Plan (1) Altered mental status Narrative/Plan: There has been progressive alteration in his mental status, especially over the last couple of days. At the time of his initial admission when the patient had significant weakness, his mental status and responses were normal. At this time etiology is not immediately apparent. He has been on antibiotics for presumed pneumonia, and has received hydration. He does not appear to have any evidence of sepsis. It was discussed with the family that at this time the etiology is not apparent. Given low platelets (though greater than 10,000 so far) CT of the brain will be ordered to rule out hemorrhage or any other parenchymal lesions. I will also discontinue Pepcid and cefepime in case they could be contributing. If the above does not indicate any specific etiology and there is no i mprovement, then we will need to consider the possibility of PULP COOKER involvement with his lymphoma. The family was informed that in that case, he would need a lumbar puncture to establish diagnosis. However that procedure would carry high risk because of his low platelets, even with platelet transfusion. In addition intravenously of or concern, then treatment options for him would be very limited. Therefore, in that case, from my standpoint, it be reasonable to consider comfort care approach. They expressed understanding of the same. Their questions were answered in this regard. Current Visit: Yes Status: Acute Code(s): R41.82 - ALTERED MENTAL STATUS, UNSPECIFIED SNOMED Code(s): 831670302 (2) Antineoplastic chemotherapy induced pancytopenia Narrative/Plan: This remains severe and persistent, despite the patient not having had any acti ve treatment for several weeks. Hemoglobin was less than 7 today, and platelets 9. Therefore PRBC and platelet transfusions were ordered Current Visit: Yes Status: Acute Code(s): D61.810 - ANTINEOPLASTIC CHEMOTHERAPY INDUCED PANCYTOPENIA; T45.1X5A - ADVERSE EFFECT OF ANTINEOPLASTIC AND IMMUNOSUP DRUGS, INIT SNOMED Code(s): 491507291805876 (3) Pneumonia Narrative/Plan: chest x-ray is stable. The patient does not show any specific respiratory symptoms. Cultures were negative. I will hold cefepime for now as noted above Current Visit: Yes Status: Acute Code(s): J18.9 - PNEUMONIA, UNSPECIFIED ORGANISM SNOMED Code(s): 451501127 Plan: It was discussed in detail with the family, that unless an acutely reversible etiology for his deterioration is found, his prognosis is likely to be very guarded, given clinical deterioration and very poor performance status. In that case they had expressed an interest in comfort care and change in CODE STATUS. Given his clinical deterioration, and this time it does not appear to be a candidate for subacute rehabilitation. As stated, if no definite reversible etiology is found and he does not improve, then we would recommend comfort care
[2019-07-17 01:49] VITALS: BP 124/74; PULSE 104; RESP 18; TEMP 96.9
[2019-07-17] MEDS ORDERED: FUROSEMIDE 10 MG/ML 4 ML VIAL IV ONE (02:30)
[2019-07-17] MEDS: POTASSIUM CHLORIDE 20 MEQ in WATER FOR INJECTION 1 100ML.BAG IVPB SCH ×2 (02:32→04:39)
[2019-07-17] MEDS: HYDROmorphone 1 MG/ML 1 ML SYRINGE IVP PRN ×3 (03:03→11:09)
[2019-07-17] MEDS: SALT AND SODA MOUTHWASH 1,000 ML PO SCH ×2 (04:46→08:45)
[2019-07-17] MEDS: NYSTATIN 100,000 UNIT/ML SUSP 500,000 UNIT/5 ML CUP PO SCH (08:45)
[2019-07-17] MEDS: MEGESTROL 40 MG TAB PO SCH (08:45)
[2019-07-17] MEDS: DRONABINOL 2.5 MG CAP PO SCH (08:45)
[2019-07-17 09:57] LABS: Anisocytosis Slight; HCT 21.6 % (39.0-53.0); HGB 7.2 gm/dL (13.0-17.5); Hypochromasia Moderate; MCH 29.9 pg (25.0-35.0); MCHC 33.3 g/dL (31.0-37.0); MCV 89.6 fL (80.0-100.0); Poikilocytosis Moderate; RBC 2.41 m/uL (4.30-5.90); RDW 17.2 % (11.5-15.5); WBC 3.6 k/uL (3.8-10.6)
[2019-07-17 10:22] LABS: Platelet Count 16 k/uL (150-450)
[2019-07-17 10:29] LABS: Albumin 2.1 g/dL (3.5-5.0); Calcium 7.2 mg/dL (8.4-10.2); Magnesium 1.8 mg/dL (1.6-2.3); Potassium 3.7 mmol/L (3.5-5.1); Total Bilirubin 1.2 mg/dL (0.2-1.3); Total Protein 4.4 g/dL (6.3-8.2)
[2019-07-17] MEDS: FILGRASTIM-SNDZ 480 MCG/0.8 ML SYRINGE SQ SCH (11:10)
--- NOTE | 2019-07-17 11:19 | P.PN ---
Subjective Progress Note Date: 07/17/19 Principal diagnosis: 68-year-old male with a past medical history of non-Hodgkin's lymphoma, marginal zone lymphoma initially diagnosed in 2012 ongoing treatment multiple times in the past admitted for severe fatigue. Patient was transferred from [facility] for pancytopenia. On 07/12/2019 - patient is lying in bed appears to be in no acute distress. His family is at bedside. Patient states that he has been feeling weak and fatigued for the past few weeks.He complains of mild difficulty in breathing and swelling of his bilateral lower extremities. He denies having any chest pain or palpitations. Mild cough. No abdominal pain nausea vomiting or diarrhea. No dysuria or hematuria. Patient received 1 unit of PRBCs and 5 units of platelets this morning. Patient denies having any bleeding from anywhere. On 07/13/2019 - patient is lying in bed appears to be in acute distress. Patient complains of generalized fatigue and weakness. He also complains of loss of appetite. Mild difficulty in breathing and denies having any chest pain or palpitations. No abdominal pain nausea vomiting or diarrhea. Patient had a bowel movement this morning and it was normal. No dysuria or hematuria. On 07/14/19 - Patient is lying in bed appears to be in no acute distress. Family members at the bedside, mentioned about loss of appetite. Patient states that he does not feel like eating much. He denies having any nausea or vomiting. Mild difficulty in breathing. No chest pain or palpitations. Denies having any dysuria or hematuria. Patient's labs have been reviewed and his hemoglobin is stable at 7.2 and platelets at 11,000 and white count 82. Patient has been afebrile for the past 24 hours. 07/15/2019 Patient is not neutropenic anymore patient is doing much better sputum cultures are finalized which showed gram-positive cocci, gram-negative bacilli, basically polymicrobial. Constitutional: Denied any fatigue denied any fever. Cardio vascular: denied any chest pain, palpitations Gastrointestinal denied any nausea vomiting Pulmonary: Denied any shortness of breath cough Neurologic denied any new focal deficits All inpatient medications were reviewed and appropriate changes in these medications as dictated in the interval history and assessment and plan. 07/16/2019 Patient is lying in bed and appears to be in no acute distress. Multiple Family members at the bedside. Patient will be receiving a unit of PRBCs along with a unit of platelets today for hemoglobin of 6.4 and platelets of 9. Oncology is following closely. CT of the brain was ordered today as the patient is now not talking, walking, or eating. 07/17/2019 Patient is lying in bed sleeping at this time as he was just given Dilaudid. Multiple family members at the bedside. Discussed with the patient's family members at length today about comfort care and possibly discussing with hospice about with her options are. Given patient's decline and deterioration the family has opted for hospice care at this time. Case management has placed a call with [facility]. Hospice nurses on their way at this time. Will continue to follow along closely. Prognosis is extremely poor. Objective - Vital Signs Vital signs: Vital Signs Temp 96.9 F L 07/17/19 01:47 Pulse 104 H 07/17/19 01:47 Resp 18 07/17/19 01:47 BP 124/74 07/17/19 01:47 Pulse Ox 94 L 07/16/19 23:09 Intake & Output 07/16/19 07/17/19 07/17/19 18:59 06:59 18:59 Intake Total 418 510 Output Total 613 140 Balance -195 370 Weight 68.492 kg Intake: Intake, IV Titration 200 Amount Potassium Chloride 20 meq 200 In Water For Injection 1 100ml.bag @ 50 mls/hr IVPB Q2H [facility] Rx#: [id number] Blood Product 418 310 Platelet Irr Pheresis 209 Acda1 Unit [id number] Rc Irr As1 Unit 310 [id number] Output: Urine 140 Uretheral ([place]) 50 Post Void Residual 613 Other: Voiding Method Diaper Indwelling Catheter Indwelling Catheter Incontinent - Exam GENERAL: The patient is alert and oriented x0, not in any acute distress. Well developed, well nourished. HEENT: Pupils are round and equally reacting to light. EOMI. No scleral icterus. conjunctival pallor. Normocephalic, atraumatic. No pharyngeal erythema. No thyromegaly. Oral mucosa is dry and pale CARDIOVASCULAR: S1 and S2 present. No murmurs, rubs, or gallops. PULMONARY: Diminished breath sounds throughout with multiple scattered rales and crackles noted. ABDOMEN: Soft, nontender, mild distention noted, hypoactive bowel sounds. No palpable organomegaly. MUSCULOSKELETAL: No joint swelling or deformity. EXTREMITIES: No cyanosis, clubbing, or pedal edema. NEUROLOGICAL: Patient is not following commands and is unresponsive SKIN: No rashes. - Labs CBC & Chem 7: 07/17/19 09:20 07/17/19 09:20 Labs: Abnormal Lab Results - Last 24 Hours (Table) 07/16/19 07/16/19 07/17/19 Range/Units 10:34 19:20 09:20 WBC 3.6 L (3.8-10.6) k/uL RBC 2.41 L (4.30-5.90) m/uL Hgb 7.2 L (13.0-17.5) gm/dL Hct 21.6 L (39.0-53.0) % RDW 17.2 H (11.5-15.5) % Plt Count 16 L* D (150-450) k/uL Sodium (137-145) mmol/L Chloride (98-107) mmol/L Carbon Dioxide (22-30) mmol/L BUN (9-20) mg/dL Creatinine (0.66-1.25) mg/dL Glucose (74-99) mg/dL Calcium (8.4-10.2) mg/dL Alkaline Phosphatase (38-126) U/L Total Protein (6.3-8.2) g/dL Albumin (3.5-5.0) g/dL Urine RBC >182 H (0-5) /hpf Crossmatch See Detail 07/17/19 Range/Units 09:20 WBC (3.8-10.6) k/uL RBC (4.30-5.90) m/uL Hgb (13.0-17.5) gm/dL Hct (39.0-53.0) % RDW (11.5-15.5) % Plt Count (150-450) k/uL Sodium 147 H (137-145) mmol/L Chloride 119 H (98-107) mmol/L Carbon Dioxide 21 L (22-30) mmol/L BUN 43 H (9-20) mg/dL Creatinine 1.66 H (0.66-1.25) mg/dL Glucose 71 L (74-99) mg/dL Calcium 7.2 L (8.4-10.2) mg/dL Alkaline Phosphatase 734 H (38-126) U/L Total Protein 4.4 L (6.3-8.2) g/dL Albumin 2.1 L (3.5-5.0) g/dL Urine RBC (0-5) /hpf Crossmatch Microbiology - Last 24 Hours (Table) 07/11/19 01:55 Blood Culture - Final Blood No Growth after 144 hours 07/11/19 22:39 Blood Culture - Preliminary Blood No Growth after 120 hours Assessment and Plan Assessment: -Right lower lobe pneumonia. patient is neutropenic patient was started on Cefepime, urine culture is polymicrobial cannot really say gram-negative pneumonia. Cefepime was discontinued -Pancytopenia secondary to chemotherapy patient, did receive filgrastim. the patient's has severe thrombocytopenia quit that 10,000 platelet count today although patient doesn't have any active bleeding at this time. Patient's hemoglobin today is 7.2 and platelets are 16 status post receiving a unit of PRBCs and a unit of platelets yesterday. - non-Hodgkin's lymphoma with recent chemotherapy as mentioned above -Fatigue. Secondary to anemia received monitor blood transfusion -hypokalemia potassium was supplemented -GI prophylaxis with Pepcid -DVT prophylaxis cannot use heparin for or any other anticoagulants because of thrombocytopenia Recommendations and discussion: Recommend to continue with comfort care and hospice was consulted. Awaiting hospice nurse at this time. Family has agreed to hospice inpatient. Will continue to monitor closely. Spoke with oncology and they are agreeable to comfort care at this point per family's request.
[2019-07-17 11:40] LABS: Band Neutrophils % 7 %; Lymphocytes # (M) 0.14 k/uL (1.0-4.8); Metamyelocytes # (M) 0.11 k/uL (0); Metamyelocytes % 3 %; Monocytes # (M) 0.22 k/uL (0-1.0); Myelocytes # (M) 0.04 k/uL (0); Myelocytes % 1 %; Neutrophils % (M) 79 %; Nucleated Red Blood Cells 0 /100 WBC (0-0); Total Cells Counted 100
--- NOTE | 2019-07-21 16:14 | P.DS ---
Providers Date of admission: 07/11/19 01:19 Attending physician: Polina Leyva Consults: 07/11/19 01:17 Consult Physician Stat Consulting Provider: Radha Flores Consult Reason/Comments: Non-Hodgkin's lymphoma patient. Pancytopenia. Do you want consulting provider notified?: Already Contacted Primary care physician: Physician Nonstaff Hospital Course: Patient was made inpatient hospice please refer to the progress note from the same day for further details. Patient Condition at Discharge: Poor Plan - Discharge Summary Discharge Rx Participant: Yes New Discharge Prescriptions: No Action LORazepam [Ativan] 0.5 mg PO DAILY PRN PRN Reason: Anxiety Prochlorperazine [Compazine] 10 mg PO Q6H PRN PRN Reason: Nausea Diphenoxylate HCl/Atropine [Lomotil 2.5-0.025 mg Tablet] 1 - 2 tab PO QID PRN PRN Reason: Diarrhea Discharge Medication List Diphenoxylate HCl/Atropine [Lomotil 2.5-0.025 mg Tablet] 1 - 2 tab PO QID PRN 07/11/19 [History] LORazepam [Ativan] 0.5 mg PO DAILY PRN 07/11/19 [History] Prochlorperazine [Compazine] 10 mg PO Q6H PRN 07/11/19 [History] Follow up Appointment(s)/Referral(s): Nonstaff,Physician [Primary Care Provider] - 1-2 days Discharge Disposition: DISCH TO HOSPICE [facility]
--- NOTE | 2019-07-21 16:15 | P.HPIM ---
History of Present Illness Patient is being admitted for hospice please refer to the documentation of the progress note for further details which was done on the same day. Past Medical History Additional Past Medical History / Comment(s): non hodgkins lymphoma History of Any Multi-Drug Resistant Organisms: None Reported Past Surgical History: Hernia Repair Additional Past Surgical History / Comment(s): 1985 hernia repair Past Psychological History: No Psychological Hx Reported Smoking Status: Never smoker Past Alcohol Use History: None Reported Past Drug Use History: None Reported Medications and Allergies Home Medications Medication Instructions Recorded Confirmed Type Diphenoxylate HCl/Atropine 1 - 2 tab PO QID PRN 07/11/19 07/17/19 History [Lomotil 2.5-0.025 mg Tablet] LORazepam [Ativan] 0.5 mg PO DAILY PRN 07/11/19 07/17/19 History Prochlorperazine [Compazine] 10 mg PO Q6H PRN 07/11/19 07/17/19 History Allergies Allergy/AdvReac Type Severity Reaction Status Date / Time No Known Allergies Allergy Verified 07/17/19 15:10 Results CBC & Chem 7: 07/17/19 09:20 07/17/19 09:20 Thrombosis Risk Factor Assmnt - Choose All That Apply Any of the Below Risk Factors Present?: No Other Risk Factors: Yes Each Risk Factor Represents 2 Points: Age 61-74 years, Malignancy Other congenital or acquired thrombophilia - If yes, enter type in comment: No Thrombosis Risk Factor Assessment Total Risk Factor Score: 4 Thrombosis Risk Factor Assessment Level: Moderate Risk
== END 2019-07-17 11:43 | disposition hospice, inpatient (51) | DRG 871 ==
LOC: EC 23:04 → 3NMEDONC 07-11 01:19
PROVIDERS: ADMIT Hospitalist; ATTEND Hospitalist
DX: A41.9 Sepsis, unspecified organism (principal); D61.810 Antineoplastic chemotherapy induced pancytopenia; E43 Unspecified severe protein-calorie malnutrition; J18.9 Pneumonia, unspecified organism; K83.1 Obstruction of bile duct; B37.0 Candidal stomatitis; C83.30 Diffuse large B-cell lymphoma, unspecified site; E87.6 Hypokalemia; L89.152 Pressure ulcer of sacral region, stage 2; N18.9 Chronic kidney disease, unspecified; R32 Unspecified urinary incontinence; T45.1X5A Adverse effect of antineoplastic and immunosuppressive drugs, initial encounter; Z79.899 Other long term (current) drug therapy; Z51.5 Encounter for palliative care
CPT/HCPCS: 70470; 71045; 71046; 74019; 80048; 80053; 81003; 83010; 83605; 83615; 83735; 85025; 85027; 85045; 85379; 85384; 85610; 85730; 86850; 86900; 86901; 86920; 87040; 87070; 87205; 99285

== ENCOUNTER 2019-07-17 11:17 | Inpatient (IN) | payer MEDICAID ==
[2019-07-17] MEDS ORDERED: ACETAMINOPHEN SUPPOSITORY 650 MG SUPP RECTAL PRN (11:25)
[2019-07-17] MEDS ORDERED: LORazepam 2 MG/ML INJ IV PRN (11:25)
[2019-07-17] MEDS ORDERED: ONDANSETRON 4 MG/2 ML VIAL IVP PRN (11:25)
[2019-07-17] MEDS ORDERED: MORPHINE SULFATE 2 MG/ML SYRINGE IV PRN (11:25)
[2019-07-17] MEDS ORDERED: GLYCOPYRROLATE 0.2 MG/ML 2 ML VIAL IVP PRN (12:00)
[2019-07-17] MEDS ORDERED: MORPHINE SULFATE (100 MG/2 ML) 100 MG in SODIUM CHLORIDE 0.9% 100 ML IV SCH (12:00)
[2019-07-17] MEDS ORDERED: ATROPINE OPHTH SOLN 1% 5ML BTL SUBLINGUAL PRN (12:00)
[2019-07-17] MEDS ORDERED: SCOPOLAMINE 1.5MG/72HR PATCH TRANSDERM SCH (12:00)
[2019-07-17 19:59] VITALS: PULSE 125; RESP 28
--- NOTE | 2019-07-21 16:16 | P.HPIM ---
History of Present Illness Patient is admitted and hospice services as an inpatient hospice please refer to the progress note that was done on the same day under different financial number for further details Past Medical History Additional Past Medical History / Comment(s): non hodgkins lymphoma History of Any Multi-Drug Resistant Organisms: None Reported Past Surgical History: Hernia Repair Additional Past Surgical History / Comment(s): 1985 hernia repair Past Psychological History: No Psychological Hx Reported Smoking Status: Never smoker Past Alcohol Use History: None Reported Past Drug Use History: None Reported Medications and Allergies Home Medications Medication Instructions Recorded Confirmed Type Diphenoxylate HCl/Atropine 1 - 2 tab PO QID PRN 07/11/19 07/17/19 History [Lomotil 2.5-0.025 mg Tablet] LORazepam [Ativan] 0.5 mg PO DAILY PRN 07/11/19 07/17/19 History Prochlorperazine [Compazine] 10 mg PO Q6H PRN 07/11/19 07/17/19 History Allergies Allergy/AdvReac Type Severity Reaction Status Date / Time No Known Allergies Allergy Verified 07/17/19 15:10
--- NOTE | 2019-07-21 16:17 | P.DS ---
Providers Date of admission: 07/17/19 11:45 Attending physician: Shannon French Primary care physician: Physician Nonstaff Hospital Course: Shunt was made hospice and subsequently please refer to nursing documentation for exact time of . Plan - Discharge Summary New Discharge Prescriptions: No Action LORazepam [Ativan] 0.5 mg PO DAILY PRN PRN Reason: Anxiety Prochlorperazine [Compazine] 10 mg PO Q6H PRN PRN Reason: Nausea Diphenoxylate HCl/Atropine [Lomotil 2.5-0.025 mg Tablet] 1 - 2 tab PO QID PRN PRN Reason: Diarrhea Discharge Medication List Diphenoxylate HCl/Atropine [Lomotil 2.5-0.025 mg Tablet] 1 - 2 tab PO QID PRN 07/11/19 [History] LORazepam [Ativan] 0.5 mg PO DAILY PRN 07/11/19 [History] Prochlorperazine [Compazine] 10 mg PO Q6H PRN 07/11/19 [History] Discharge Disposition: - Preliminary Cause of Preliminary Cause of : Pneumonia
== END 2019-07-17 20:58 | disposition expired | DRG 951 ==
LOC: 3NMEDONC 11:45
PROVIDERS: ADMIT Internal Medicine; ATTEND Internal Medicine
DX: Z51.5 Encounter for palliative care (principal); J18.9 Pneumonia, unspecified organism; D61.810 Antineoplastic chemotherapy induced pancytopenia; C85.90 Non-Hodgkin lymphoma, unspecified, unspecified site; T45.1X5A Adverse effect of antineoplastic and immunosuppressive drugs, initial encounter; R79.89 Other specified abnormal findings of blood chemistry; Z66 Do not resuscitate; Z79.899 Other long term (current) drug therapy